=== PATIENT | female | born 1940 | race Caucasian/White ===

== ENCOUNTER 2018-06-27 15:08 | Inpatient (IN) | payer MEDICARE, OTHER ==
[~2018-06-27] VITALS: Ht 157.5 cm; Wt 70.8 kg
[2018-06-27 15:27] LABS: BASOPHILS # (AUTO) 0.1 K/uL (0.0-8.0); BASOPHILS % (AUTO) 0.3 % (0.0-2.0); EOSINOPHILS % (AUTO) 0.1 % (0.0-7.0); HEMATOCRIT 36.5 % (31.2-41.9); HEMOGLOBIN 11.9 g/dL (10.9-14.3); LYMPHOCYTES # (AUTO) 14.6 K/uL (20.0-40.0); LYMPHOCYTES % (AUTO) 72.7 % (20.5-51.5); MEAN CORPUSCULAR HEMOGLOBIN 28.3 uug (24.7-32.8); MEAN CORPUSCULAR HGB CONC 33 g/dL (32.3-35.6); MONOCYTES # (AUTO) 0.5 K/uL (2.0-10.0); MONOCYTES % (AUTO) 2.4 % (0.0-11.0); NEUTROPHILS # (AUTO) 4.9 K/uL (1.8-8.9); NEUTROPHILS % (AUTO) 24.5 % (38.5-71.5); PLATELET COUNT (AUTO) 158 K/uL (179-408); RED BLOOD CELL COUNT(AUTO) 4.19 MIL/uL (3.63-4.92)
[2018-06-27] MEDS ORDERED: [UNRECOGNIZED DRUG - OTHER] PO (15:32)
[2018-06-27 15:39] LABS: ALANINE AMINOTRANSFERASE 92 U/L (14-59); ALKALINE PHOSPHATASE 48 U/L (50-136); ASPARTATE AMINOTRANSFERASE 44 U/L (15-37); BILIRUBIN,DIRECT 0.1 mg/dL (0.0-0.2); BILIRUBIN,TOTAL 0.3 mg/dL (0.2-1.0); CARBON DIOXIDE 26 mmol/L (21-32); CHLORIDE 105 mmol/L (98-107); GLUCOSE 106 mg/dL (74-106); POTASSIUM 3.8 mmol/L (3.5-5.1); TOTAL PROTEIN, SERUM 6.8 g/dL (6.4-8.2); UREA NITROGEN, BLOOD 25 mg/dL (7-18)
[2018-06-27 15:40] LABS: ETHANOL < 3 MG/DL (0-0)
[2018-06-27 15:48] LABS: *BILIRUBIN,URIN 1+ (NEGATIVE); *BLOOD, URINE 1+ (NEGATIVE); *COLOR,URINE YELLOW (YELLOW); *KETONES,URINE NEGATIVE (NEGATIVE); *PROTEIN,URINE NEGATIVE (NEGATIVE); *UROBILINOGEN,URINE 0.2 E.U./dl (NORMAL); LEUKOCYTE ESTERASE ,URINE NEGATIVE (NEGATIVE); NITRITE, URINE NEGATIVE (NEGATIVE); PH,URINE 5.5 (5.0-8.0); UGLUCOSE NEGATIVE (NEGATIVE)
[2018-06-27 15:55] LABS: LYMPHOCYTES % (MANUAL) 70 % (20-40); MONOCYTES % (MANUAL) 2 % (2-10); NEUTROPHILS % (MANUAL) 28 % (42-75)
[2018-06-27 15:59] LABS: *CLARITY,URINE SLIGHTLY HAZY (CLEAR)
[2018-06-27 16:00] LABS: *AMPHETAMINE, URINE NEGATIVE (NEGATIVE); *BARBITURATE, URINE NEGATIVE (NEGATIVE); *CANNABINOID, URINE NEGATIVE (NEGATIVE); *COCCAINE, URINE NEGATIVE (NEGATIVE); *OPIATE, URINE NEGATIVE (NEGATIVE); *PHENCYCLIDINE SCREEN,URINE NEGATIVE (NEGATIVE)
[2018-06-27 16:01] LABS: THYROID STIMULATING HORMONE 3.329 mIU/mL (0.358-3.740)
[2018-06-27 16:02] LABS: CALCIUM OXALATE CRYSTALS,UR MODERATE /HPF (NONE SEEN); MUCUS,URINE MANY /LPF (0-FEW); SQUAMOUS EPITHELIAL CELL,UR MODERATE /HPF (NONE SEEN); WBC,URINE 0-3 /HPF (0-3)
[2018-06-27] MEDS ORDERED: TEMAZEPAM 7.5 MG CAPSULE PO PRN ×2 (18:00→18:45)
[2018-06-27] MEDS ORDERED: MAGNESIUM HYDROXIDE 30 ML LIQUID UDC PO PRN (18:00)
[2018-06-27] MEDS ORDERED: MAG HYDROX/AL HYDROX/SIMETH 30 ML LIQUID UDC PO PRN (18:00)
[2018-06-27] MEDS ORDERED: ACETAMINOPHEN 325 MG TABLET PO PRN (18:00)
[2018-06-27] MEDS ORDERED: CLONAZEPAM 0.5 MG TABLET PO PRN ×2 (18:00→19:00)
[2018-06-27 20:38] VITALS: BP 141/73
[2018-06-27] MEDS ORDERED: VALE150C PO (20:52)
[2018-06-27] MEDS ORDERED: OLANZAPINE 10 MG VIAL IM ONE (23:00)
[2018-06-28 07:30] VITALS: BP 127/51
[2018-06-28 16:15] VITALS: BP 135/73
[2018-06-28 20:02] VITALS: BP 131/68
[2018-06-28] MEDS ORDERED: OLANZAPINE 5 MG TABLET PO SCH (21:00)
[2018-06-29 07:30] VITALS: BP 156/64
[2018-06-29 16:00] VITALS: BP 143/61
[2018-06-29 17:10] LABS: BASOPHILS # (AUTO) 0.1 K/uL (0.0-8.0); BASOPHILS % (AUTO) 0.3 % (0.0-2.0); EOSINOPHILS % (AUTO) 0.2 % (0.0-7.0); HEMATOCRIT 37.2 % (31.2-41.9); HEMOGLOBIN 12.3 g/dL (10.9-14.3); LYMPHOCYTES # (AUTO) 14.6 K/uL (20.0-40.0); LYMPHOCYTES % (AUTO) 77.4 % (20.5-51.5); MEAN CORPUSCULAR HEMOGLOBIN 28.7 uug (24.7-32.8); MEAN CORPUSCULAR HGB CONC 33 g/dL (32.3-35.6); MEAN CORPUSCULAR VOLUME 86.8 fL (75.5-95.3); MONOCYTES # (AUTO) 0.4 K/uL (2.0-10.0); MONOCYTES % (AUTO) 2.3 % (0.0-11.0); NEUTROPHILS # (AUTO) 3.7 K/uL (1.8-8.9); NEUTROPHILS % (AUTO) 19.8 % (38.5-71.5); PLATELET COUNT (AUTO) 151 K/uL (179-408); RED BLOOD CELL COUNT(AUTO) 4.28 MIL/uL (3.63-4.92); WHITE BLOOD COUNT (AUTO) 18.8 K/uL (3.8-11.8)
[2018-06-29 17:23] LABS: ALANINE AMINOTRANSFERASE 79 U/L (14-59); ALKALINE PHOSPHATASE 49 U/L (50-136); ASPARTATE AMINOTRANSFERASE 33 U/L (15-37); BILIRUBIN,TOTAL 0.2 mg/dL (0.2-1.0); CARBON DIOXIDE 27 mmol/L (21-32); CHLORIDE 105 mmol/L (98-107); CREATININE 0.9 mg/dL (0.6-1.3); GLUCOSE 92 mg/dL (74-106); PHOSPHOROUS 3.4 mg/dL (2.5-4.9); TOTAL PROTEIN, SERUM 6.7 g/dL (6.4-8.2); UREA NITROGEN, BLOOD 19 mg/dL (7-18)
[2018-06-29 17:32] LABS: NEUTROPHILS % (MANUAL) 17 % (42-75)
[2018-06-29 17:33] LABS: BAND % (MANUAL) 2 % (0-10); EOSINOPHILS % (MANUAL) 1 % (0-8); MONOCYTES % (MANUAL) 2 % (2-10)
[2018-06-29 17:34] LABS: LYMPHOCYTES % (MANUAL) 78 % (20-40)
[2018-06-29] MEDS: OLANZAPINE 5 MG TABLET PO SCH (20:04)
[2018-06-29 21:20] VITALS: BP 110/50
[2018-06-30 07:30] VITALS: BP 129/48
[2018-06-30 16:00] VITALS: BP 130/53
[2018-06-30] MEDS: OLANZAPINE 5 MG TABLET PO SCH (20:21)
[2018-06-30 21:05] VITALS: BP 120/46
[2018-07-01 07:30] VITALS: BP 140/55
[2018-07-01 16:15] VITALS: BP 131/86
[2018-07-01] MEDS: OLANZAPINE 5 MG TABLET PO SCH (20:15)
[2018-07-01 22:42] VITALS: BP 118/60
[2018-07-02 07:30] VITALS: BP 108/33
[2018-07-02 07:36] LABS: CARBON DIOXIDE 28 mmol/L (21-32); CHLORIDE 106 mmol/L (98-107); CREATININE 0.9 mg/dL (0.6-1.3); GLUCOSE 99 mg/dL (74-106); UREA NITROGEN, BLOOD 18 mg/dL (7-18)
[2018-07-02 07:44] LABS: BASOPHILS % (AUTO) 0.3 % (0.0-2.0); EOSINOPHILS # (AUTO) 0.1 K/uL (0.0-0.7); EOSINOPHILS % (AUTO) 0.3 % (0.0-7.0); HEMATOCRIT 37.7 % (31.2-41.9); HEMOGLOBIN 12.3 g/dL (10.9-14.3); LYMPHOCYTES % (AUTO) 78.5 % (20.5-51.5); MEAN CORPUSCULAR HEMOGLOBIN 28.5 uug (24.7-32.8); MEAN CORPUSCULAR HGB CONC 33 g/dL (32.3-35.6); MEAN CORPUSCULAR VOLUME 87.4 fL (75.5-95.3); MONOCYTES # (AUTO) 0.4 K/uL (2.0-10.0); MONOCYTES % (AUTO) 2.4 % (0.0-11.0); NEUTROPHILS # (AUTO) 3.1 K/uL (1.8-8.9); NEUTROPHILS % (AUTO) 18.5 % (38.5-71.5); PLATELET COUNT (AUTO) 158 K/uL (179-408); RED BLOOD CELL COUNT(AUTO) 4.32 MIL/uL (3.63-4.92); WHITE BLOOD COUNT (AUTO) 16.5 K/uL (3.8-11.8)
[2018-07-02 11:34] LABS: LYMPHOCYTES % (MANUAL) 86 % (20-40); NEUTROPHILS % (MANUAL) 14 % (42-75)
[2018-07-02 16:00] VITALS: BP 137/44
[2018-07-02] MEDS: OLANZAPINE 5 MG TABLET PO SCH (20:13)
[2018-07-02 20:28] VITALS: BP 133/57
[2018-07-03 07:30] VITALS: BP 147/58
[2018-07-03 15:20] VITALS: BP 120/50
[2018-07-03 20:17] VITALS: BP 116/50
[2018-07-03] MEDS: OLANZAPINE 5 MG TABLET PO SCH (20:17)
[2018-07-04 07:30] VITALS: BP 142/60
[2018-07-04 16:00] VITALS: BP 110/56
== END 2018-07-04 18:30 | disposition home or self-care (01) | DRG 885 ==
LOC: ER 15:10 → GPS 17:36
PROVIDERS: ADMIT Psychiatry & Neurology Psychiatry; ATTEND Hospitalist
DX: F29 Unspecified psychosis not due to a substance or known physiological condition (principal); N17.0 Acute kidney failure with tubular necrosis; G92 Toxic encephalopathy; F03.90 Unspecified dementia, unspecified severity, without behavioral disturbance, psychotic disturbance, mood disturbance, and anxiety; R74.0 Nonspecific elevation of levels of transaminase and lactic acid dehydrogenase [LDH]; T42.6X5A Adverse effect of other antiepileptic and sedative-hypnotic drugs, initial encounter; Y92.019 Unspecified place in single-family (private) house as the place of occurrence of the external cause; D72.829 Elevated white blood cell count, unspecified; Z91.14 Patient's other noncompliance with medication regimen
CPT/HCPCS: 36415; 70450; 71045; 80307; 83735; 84100; 84443; 85025; 93005; A4663; G0480; J2358

== ENCOUNTER 2018-09-27 13:30 | Inpatient (IN) | payer MEDICARE, MEDICAID ==
[~2018-09-27] VITALS: Ht 162.6 cm; Wt 64.4 kg
[~2018-09-27 13:30] MED LIST: VALE150C PO; [UNRECOGNIZED DRUG - OTHER] PO
[2018-09-27 14:21] LABS: *BILIRUBIN,URIN NEGATIVE (NEGATIVE); *BLOOD, URINE 1+ (NEGATIVE); *CLARITY,URINE CLEAR (CLEAR); *COLOR,URINE YELLOW (YELLOW); *KETONES,URINE NEGATIVE (NEGATIVE); *UROBILINOGEN,URINE 0.2 E.U./dl (NORMAL); CARBON DIOXIDE 27 mmol/L (21-32); CHLORIDE 101 mmol/L (98-107); CREATININE 0.9 mg/dL (0.6-1.3); GLUCOSE 111 mg/dL (74-106); LEUKOCYTE ESTERASE ,URINE NEGATIVE (NEGATIVE); NITRITE, URINE NEGATIVE (NEGATIVE); PH,URINE 5.5 (5.0-8.0); POTASSIUM 3.6 mmol/L (3.5-5.1); UGLUCOSE NEGATIVE (NEGATIVE); UREA NITROGEN, BLOOD 16 mg/dL (7-18)
[2018-09-27 14:24] LABS: BASOPHILS % (AUTO) 0.1 % (0.0-2.0); EOSINOPHILS % (AUTO) 0.1 % (0.0-7.0); HEMOGLOBIN 11.4 g/dL (10.9-14.3); LYMPHOCYTES # (AUTO) 13.3 K/uL (20.0-40.0); LYMPHOCYTES % (AUTO) 69.5 % (20.5-51.5); MEAN CORPUSCULAR HEMOGLOBIN 27.7 uug (24.7-32.8); MEAN CORPUSCULAR HGB CONC 33 g/dL (32.3-35.6); MEAN CORPUSCULAR VOLUME 85.1 fL (75.5-95.3); MONOCYTES # (AUTO) 0.3 K/uL (2.0-10.0); MONOCYTES % (AUTO) 1.7 % (0.0-11.0); NEUTROPHILS # (AUTO) 5.5 K/uL (1.8-8.9); NEUTROPHILS % (AUTO) 28.6 % (38.5-71.5); PLATELET COUNT (AUTO) 169 K/uL (179-408); RED BLOOD CELL COUNT(AUTO) 4.11 MIL/uL (3.63-4.92); WHITE BLOOD COUNT (AUTO) 19.1 K/uL (3.8-11.8)
[2018-09-27 14:27] LABS: *AMPHETAMINE, URINE NEGATIVE (NEGATIVE); *BARBITURATE, URINE NEGATIVE (NEGATIVE); *CANNABINOID, URINE NEGATIVE (NEGATIVE); *COCCAINE, URINE NEGATIVE (NEGATIVE); *OPIATE, URINE NEGATIVE (NEGATIVE); *PHENCYCLIDINE SCREEN,URINE NEGATIVE (NEGATIVE); ALANINE AMINOTRANSFERASE 29 U/L (14-59); ALKALINE PHOSPHATASE 69 U/L (50-136); ASPARTATE AMINOTRANSFERASE 17 U/L (15-37); BILIRUBIN,DIRECT 0.1 mg/dL (0.0-0.2); BILIRUBIN,TOTAL 0.4 mg/dL (0.2-1.0); TOTAL PROTEIN, SERUM 6.9 g/dL (6.4-8.2)
[2018-09-27 14:28] LABS: ACETAMINOPHEN < 2.0 ug/mL (10-30)
[2018-09-27 14:29] LABS: ETHANOL < 3 MG/DL (0-0)
[2018-09-27 14:41] LABS: SQUAMOUS EPITHELIAL CELL,UR FEW /HPF (NONE SEEN); WBC,URINE 0-3 /HPF (0-3)
[2018-09-27 15:03] LABS: BAND % (MANUAL) 1 % (0-10); LYMPHOCYTES % (MANUAL) 68 % (20-40); MONOCYTES % (MANUAL) 2 % (2-10); NEUTROPHILS % (MANUAL) 29 % (42-75)
[2018-09-27 17:15] VITALS: BP 146/66
[2018-09-27] MEDS ORDERED: ACETAMINOPHEN 325 MG TABLET PO PRN (18:00)
[2018-09-27] MEDS ORDERED: TEMAZEPAM 7.5 MG CAPSULE PO PRN (18:00)
[2018-09-27] MEDS ORDERED: MAG HYDROX/AL HYDROX/SIMETH 30 ML LIQUID UDC PO PRN (18:00)
[2018-09-27] MEDS ORDERED: MAGNESIUM HYDROXIDE 30 ML LIQUID UDC PO PRN (18:00)
[2018-09-27 20:00] VITALS: BP 146/60
[2018-09-27] MEDS: CLONAZEPAM 0.5 MG TABLET PO PRN (20:57)
[2018-09-28 07:30] VITALS: BP 117/57
[2018-09-28 16:00] VITALS: BP 120/57
[2018-09-28 20:11] VITALS: BP 98/62
[2018-09-28] MEDS: MIRTAZAPINE 15 MG TABLET PO SCH (20:20)
[2018-09-29 07:30] VITALS: BP 135/59
[2018-09-29 15:08] VITALS: BP 114/53
[2018-09-29] MEDS: MIRTAZAPINE 15 MG TABLET PO SCH (20:22)
[2018-09-29 20:39] VITALS: BP 114/52
[2018-09-30 16:54] VITALS: BP 123/58
[2018-09-30 20:00] VITALS: BP 121/60
[2018-09-30] MEDS: MIRTAZAPINE 15 MG TABLET PO SCH ×2 (20:13→20:18)
[2018-10-01 07:30] VITALS: BP 113/57
[2018-10-01 16:56] VITALS: BP 93/53
[2018-10-01 20:12] VITALS: BP 135/70
[2018-10-01] MEDS: MIRTAZAPINE 15 MG TABLET PO SCH (20:21)
[2018-10-02 07:30] VITALS: BP 136/70
[2018-10-02] MEDS: CLONAZEPAM 0.5 MG TABLET PO PRN (11:46)
[2018-10-02 15:38] VITALS: BP 122/77
[2018-10-02 20:00] VITALS: BP 120/56
[2018-10-02] MEDS: MIRTAZAPINE 15 MG TABLET PO SCH (20:28)
[2018-10-03] MEDS: CLONAZEPAM 0.5 MG TABLET PO PRN ×2 (06:26→14:54)
[2018-10-03 07:30] VITALS: BP 96/63
[2018-10-03 16:13] VITALS: BP 122/52
[2018-10-03] MEDS: MIRTAZAPINE 15 MG TABLET PO SCH (20:56)
== END 2018-10-04 10:45 | disposition home or self-care (01) | DRG 885 ==
LOC: ER 13:30 → GPS 17:09
PROVIDERS: ADMIT Psychiatry & Neurology Psychiatry; ATTEND Nurse Practitioner Acute Care
DX: F33.2 Major depressive disorder, recurrent severe without psychotic features (principal); C91.10 Chronic lymphocytic leukemia of B-cell type not having achieved remission; G47.9 Sleep disorder, unspecified; I70.0 Atherosclerosis of aorta; F03.90 Unspecified dementia, unspecified severity, without behavioral disturbance, psychotic disturbance, mood disturbance, and anxiety; F41.9 Anxiety disorder, unspecified
CPT/HCPCS: 36415; 71045; 80307; 85025; 93005; A4663; G0480; G0480-TC

== ENCOUNTER 2018-10-23 13:59 | Inpatient (IN) | payer MEDICARE, MEDICAID ==
[~2018-10-23] VITALS: Ht 160 cm; Wt 64.4 kg
--- NOTE | 2018-10-23 14:05 | NUR ---
Recieved the patient oriented x1, name only, unable to answer any questions appropriately. EKG done, patient on monitor, AP irregular, lungs clear, diminished bilat. Lower abdomen distended, brink catherter 16 new zealander was inserted UA C&S sent. Labs done.
--- NOTE | 2018-10-23 14:17 | NUR ---
PT UNABLE TO FURNISH ANY MED INFORMATION AT THIS TIME R/T ALTERED MENTAL STATUS.
[2018-10-23] MEDS ORDERED: MIRT15TA PO (14:28)
[2018-10-23] MEDS ORDERED: MAGN400O6 PO (14:28)
[2018-10-23] MEDS ORDERED: CLON0.5T PO (14:28)
[2018-10-23] MEDS ORDERED: MAG355OR18 PO (14:28)
[2018-10-23] MEDS ORDERED: ACET-2154 PO (14:28)
[2018-10-23] MEDS ORDERED: TEMA7.5C PO (14:28)
[2018-10-23 14:39] LABS: BASOPHILS % (AUTO) 0.1 % (0.0-2.0); HEMATOCRIT 41.9 % (31.2-41.9); HEMOGLOBIN 13.5 g/dL (10.9-14.3); LYMPHOCYTES # (AUTO) 18.2 K/uL (20.0-40.0); LYMPHOCYTES % (AUTO) 61.8 % (20.5-51.5); MEAN CORPUSCULAR HEMOGLOBIN 27.3 uug (24.7-32.8); MEAN CORPUSCULAR HGB CONC 32 g/dL (32.3-35.6); MONOCYTES # (AUTO) 0.5 K/uL (2.0-10.0); MONOCYTES % (AUTO) 1.6 % (0.0-11.0); NEUTROPHILS # (AUTO) 10.7 K/uL (1.8-8.9); NEUTROPHILS % (AUTO) 36.5 % (38.5-71.5); PLATELET COUNT (AUTO) 166 K/uL (179-408); RED BLOOD CELL COUNT(AUTO) 4.93 MIL/uL (3.63-4.92); WHITE BLOOD COUNT (AUTO) 29.5 K/uL (3.8-11.8)
[2018-10-23 14:46] LABS: *BILIRUBIN,URIN NEGATIVE (NEGATIVE); *BLOOD, URINE 1+ (NEGATIVE); *CLARITY,URINE CLEAR (CLEAR); *COLOR,URINE YELLOW (YELLOW); *KETONES,URINE 2+ (NEGATIVE); *UROBILINOGEN,URINE 0.2 E.U./dl (NORMAL); LEUKOCYTE ESTERASE ,URINE NEGATIVE (NEGATIVE); NITRITE, URINE NEGATIVE (NEGATIVE); PH,URINE 5.5 (5.0-8.0); UGLUCOSE NEGATIVE (NEGATIVE)
[2018-10-23 14:47] LABS: CARBON DIOXIDE 21 mmol/L (21-32); CHLORIDE 104 mmol/L (98-107); GLUCOSE 110 mg/dL (74-106); POTASSIUM 4.3 mmol/L (3.5-5.1); UREA NITROGEN, BLOOD 19 mg/dL (7-18)
[2018-10-23 14:53] LABS: ALANINE AMINOTRANSFERASE 31 U/L (14-59); ALKALINE PHOSPHATASE 62 U/L (50-136); ASPARTATE AMINOTRANSFERASE 31 U/L (15-37); BILIRUBIN,DIRECT 0.2 mg/dL (0.0-0.2); BILIRUBIN,TOTAL 0.6 mg/dL (0.2-1.0); TOTAL PROTEIN, SERUM 7.1 g/dL (6.4-8.2)
[2018-10-23 14:53] LABS: WBC,URINE NONE SEEN /HPF (0-3)
[2018-10-23 14:54] LABS: BACTERIA,URINE NONE SEEN /HPF (NONE SEEN); SQUAMOUS EPITHELIAL CELL,UR FEW /HPF (NONE SEEN)
--- NOTE | 2018-10-23 14:55 | NUR ---
Patient to CT head.
[2018-10-23 15:05] LABS: LYMPHOCYTES % (MANUAL) 68 % (20-40); MONOCYTES % (MANUAL) 1 % (2-10); NEUTROPHILS % (MANUAL) 31 % (42-75)
[2018-10-23] MEDS ORDERED: HALOPERIDOL LACTATE 5 MG/1 ML VIAL ONE (15:11)
[2018-10-23] MEDS ORDERED: LORAZEPAM 2 MG/1 ML VIAL ONE (15:13)
[2018-10-23] MEDS ORDERED: HALOPERIDOL LACTATE 5 MG/1 ML VIAL IM ONE (15:15)
[2018-10-23] MEDS ORDERED: LORAZEPAM 2 MG/1 ML VIAL IV ONE (15:15)
--- NOTE | 2018-10-23 15:25 | NUR ---
Dr Ramirez visits patient, updated on present condition by son at bedside, and orders written.
[2018-10-23 15:56] LABS: ACETAMINOPHEN < 10.0 ug/mL (10-30)
[2018-10-23 16:07] LABS: ETHANOL < 3 MG/DL (0-0)
--- NOTE | 2018-10-23 16:15 | NUR ---
Patient with right hip bruise, and swollen, probable from fall at home. Right buttocks redness. Addendum: 10/23/18 at 1718 by ACARIDI Sons at bedside and aware. Andrea Cisneros RN
--- NOTE | 2018-10-23 16:35 | NUR ---
Patient family son signed for consent, and LP done at bedside, and labs sent. Andrea Cisneros RN
--- NOTE | 2018-10-23 16:55 | NUR ---
Patient to be admitted to 314, and report given to Lizbeth MARIO receiving patient, family aware of transfer. Andrea Cisneros RN
--- NOTE | 2018-10-23 17:42 | NUR ---
RECEIVED PATIENT 78 YEARS OLD FEMALE BY [facility]LEAZAR TO ROOM 214 PLACED INTO BED FIXED AND MADE COMFORTABLE PATIENT IS ALERT BUT DISORIENTED NO S/S OF PAIN OR DISCOMFORTS AT THIS TIMECALLED DR THAYER AND LEFT HIM A MESSAGE FOR ADMISSION ORDERS.
[2018-10-23 17:58] VITALS: BP 119/59
[2018-10-23] MEDS ORDERED: MAGNESIUM HYDROXIDE 30 ML LIQUID UDC PO PRN (18:00)
[2018-10-23] MEDS ORDERED: Z GUARD REMEDY PASTE 57 GM TUBE TOP PRN (18:00)
[2018-10-23] MEDS ORDERED: HYDROCODONE/APAP 5-325MG TABLET PO PRN (18:00)
[2018-10-23] MEDS ORDERED: ACETAMINOPHEN 325 MG TABLET PO SCH (18:00)
[2018-10-23] MEDS ORDERED: ONDANSETRON 4 MG/2 ML VIAL IV PRN (18:00)
[2018-10-23 18:16] LABS: *AMPHETAMINE, URINE NEGATIVE (NEGATIVE); *BARBITURATE, URINE NEGATIVE (NEGATIVE); *CANNABINOID, URINE NEGATIVE (NEGATIVE); *COCCAINE, URINE NEGATIVE (NEGATIVE); *OPIATE, URINE NEGATIVE (NEGATIVE); *PHENCYCLIDINE SCREEN,URINE NEGATIVE (NEGATIVE)
[2018-10-23 18:16] LABS: CSF PROTEIN 48 mg/dL (15-45)
[2018-10-23 18:22] LABS: CSF GLUCOSE 78 mg/dL (40-70)
--- NOTE | 2018-10-23 18:57 | NUR ---
BEDSIDE SWALLOW EVAL COMPLETED PATIENT ABLE TO SWALLOW WITHOUT COUGH CALLED DR THAYER AND LEFT HIM A MESSAGE.
[2018-10-23 20:48] VITALS: BP 98/62
[2018-10-23] MEDS: ENOXAPARIN SODIUM 40 MG/0.4 ML DISP.SYRIN SQ SCH (22:22)
[2018-10-23] MEDS: IV D5 1/2 NS 1000 ML 1,000 ML IV PRN (22:24)
[2018-10-23] MEDS: Z GUARD REMEDY PASTE 57 GM TUBE TOP SCH (22:28)
--- NOTE | 2018-10-23 22:53 | NUR ---
Rapid response called after RN entered room with medication and noted pt. was not making eye contact, looking up not responding to RN questions. RN then gently implemented tactile rubbing and patient blinked moved. Rapid response on floor assessing patient. Accuchecck and vitals completed. Noted EKG completed and call made to Physician. Call back received from physician with confirmation of order for monitor placement placement received. IV fluid initated and rn continues to round providing safe therapeutic environment for patient.
[2018-10-24 00:53] VITALS: BP 136/59
--- NOTE | 2018-10-24 01:31 | NUR ---
Pt. comfortable in bed resting with eyes closed and noted even unlabored respirations. IV site infusing well. rn able to arouse pt with minimal effort to open eyes. Monitors in place after RN called and requested telemetry monitoring. RN called MD to inform that patient had telemetry order upon admission on day shift. RN had arrived on floor at 0830 pm after assignment on TRACEY was cancel and order for telemetry was noted when rapid response was called at 0930pm. No new orders received at this time. Charge nurse aware of situation. Will continue to monitor for safety.
[2018-10-24 04:28] VITALS: BP 126/58
[2018-10-24] MEDS: PANTOPRAZOLE SODIUM 40 MG TABLET.DR PO SCH (05:46)
[2018-10-24 06:37] LABS: BASOPHILS % (AUTO) 0.1 % (0.0-2.0); EOSINOPHILS % (AUTO) 0.2 % (0.0-7.0); HEMATOCRIT 37.6 % (31.2-41.9); HEMOGLOBIN 12.2 g/dL (10.9-14.3); LYMPHOCYTES # (AUTO) 14.5 K/uL (20.0-40.0); LYMPHOCYTES % (AUTO) 70.5 % (20.5-51.5); MEAN CORPUSCULAR HEMOGLOBIN 27.2 uug (24.7-32.8); MEAN CORPUSCULAR HGB CONC 32 g/dL (32.3-35.6); MEAN CORPUSCULAR VOLUME 83.9 fL (75.5-95.3); MONOCYTES # (AUTO) 0.6 K/uL (2.0-10.0); MONOCYTES % (AUTO) 2.8 % (0.0-11.0); NEUTROPHILS # (AUTO) 5.4 K/uL (1.8-8.9); NEUTROPHILS % (AUTO) 26.4 % (38.5-71.5); PLATELET COUNT (AUTO) 149 K/uL (179-408); RED BLOOD CELL COUNT(AUTO) 4.48 MIL/uL (3.63-4.92); WHITE BLOOD COUNT (AUTO) 20.6 K/uL (3.8-11.8)
[2018-10-24 07:00] LABS: CARBON DIOXIDE 23 mmol/L (21-32); CHLORIDE 110 mmol/L (98-107); CHOLESTEROL 160 mg/dL (<200); GLUCOSE 118 mg/dL (74-106); HDL CHOLESTEROL 71 mg/dL (40-60); MAGNESIUM 1.8 mg/dL (1.8-2.4); PHOSPHOROUS 2.7 mg/dL (2.5-4.9); POTASSIUM 3.7 mmol/L (3.5-5.1); TRIGLYCERIDES 78 MG/DL (30-150); UREA NITROGEN, BLOOD 19 mg/dL (7-18)
[2018-10-24 07:06] LABS: THYROID STIMULATING HORMONE 2.473 mIU/mL (0.358-3.740)
[2018-10-24 07:53] LABS: LYMPHOCYTES % (MANUAL) 70 % (20-40); MONOCYTES % (MANUAL) 3 % (2-10); NEUTROPHILS % (MANUAL) 27 % (42-75)
--- NOTE | 2018-10-24 08:30 | NUR ---
PHYSICAL THERAPY HERE TO SEE PATIENT STATED THAT PATIENT IS WEAK AND UNABLE TO WALK WILL SEE PATIENT AT ANOTHER TIME OPENS EYES SLEEPY ATTEMPT TO RESPOND BUT INCOHERENT AT THIS TIME WILL CONTINUE TO OBSERVE REMAIN NPO AT THIS TIME.
--- NOTE | 2018-10-24 08:45 | NUR ---
HEART RATE IS FLUCTUATING BETWEEN 113-115 DR BOWMAN HERE NOTIFIED AND HE SEEN AND EXAMINED PATIENT WITH NEW ORDERS FOR ECHO WILL CONTINUE TO OBSERVE MONITOR AND PROVIDE SAFE AND THERAPEUTIC ENVIRONMENT AT ALL TIMES IVF REMAINS IN PROGRESS ORDERED.
[2018-10-24] MEDS: Z GUARD REMEDY PASTE 57 GM TUBE TOP SCH ×2 (08:54→21:15)
[2018-10-24] MEDS ORDERED: IOHEXOL 300MG/ML 100 ML INFUS..BTL ONE (09:46)
[2018-10-24] MEDS ORDERED: IV NORMAL SALINE 250 ML IV ONE (09:46)
[2018-10-24] MEDS ORDERED: SWABABLE VALVE TRANSFER SET EA MC ONE (09:46)
[2018-10-24] MEDS: IV D5 1/2 NS 1000 ML 1,000 ML IV PRN (11:16)
[2018-10-24 11:48] VITALS: BP 130/63
--- NOTE | 2018-10-24 12:00 | NUR ---
DR MUNROE HERE TO SEE PATIENT WITH NEW ORDERS AND NOTED.
--- NOTE | 2018-10-24 13:19 | NUR ---
PATIENT TAKEN DOWN TO THE RADIOLOGY DEPT BY BED FOR CT ABDOMEN AND PELVIS ORDERED AND BACK TO ROOM REMAIN ON IVF ORDERED WITH CONTINUES TO SLEEP AWARE WHEN TOUCHED OR NAME CALLED UNABLE TO CARRY ON CONVERSATIONS ALL NEEDS ANTICIPATED AND SATISFIED.WILL CONTINUE TO OBSERVE AND PROVIDE SAFE AND THERAPEUTIC ENVIRONMENT AT ALL TIMES.
[2018-10-24 15:35] VITALS: BP 134/67
--- NOTE | 2018-10-24 18:00 | NUR ---
PATIENT IS CONFUSED DISORIENTED STILL LETHARGIC ATTEMPTS TO VERBALISE BUT IS INCOHERENT REMAIN NPO ALL NEEDS ANTICIPATED AND SATISFIED IVF IN PROGRESS ORDERED MADE COMFORTABLE AND WILL CONTINUE TO OBSERVE.
[2018-10-24 19:19] VITALS: BP 138/63
--- NOTE | 2018-10-24 19:40 | NUR ---
Received patient awake and lethargic in bed. No signs of acute distress noted. No signs of pain or SOB. IVF running on the right AC. Safety measures initiated. Patient made comfortable. Bed is low and locked, call light is within reach. Will continue to monitor.
[2018-10-24] MEDS: ENOXAPARIN SODIUM 40 MG/0.4 ML DISP.SYRIN SQ SCH (21:10)
[2018-10-24 23:23] VITALS: BP 117/49
[2018-10-25] MEDS: IV D5 1/2 NS 1000 ML 1,000 ML IV PRN ×2 (02:21→15:53)
[2018-10-25 03:21] VITALS: BP 137/66
[2018-10-25] MEDS: PANTOPRAZOLE SODIUM 40 MG TABLET.DR PO SCH (06:23)
--- NOTE | 2018-10-25 07:20 | NUR ---
PATIENT RECEIVED ON BED, NO ACUTE DISTRESS NOTED. AAOX2. ON TELE SINUS TACHYCARDIA. IV ACCESS ON RIGHT AC # 20 INTACT AND PATENT RUNNING NS @ 75 CC/HR, INFUSING WELL. NPO. NO COMPLAINTS OF PAIN/DISCOMFORT AT THIS TIME. COMFORT MEASURES PROVIDED. CALL LIGHT WITHIN REACH. WILL COTNINUE TO MONITOR CLOSELY.
[2018-10-25] MEDS: Z GUARD REMEDY PASTE 57 GM TUBE TOP SCH ×2 (08:33→20:43)
[2018-10-25 11:43] VITALS: BP 163/79
--- NOTE | 2018-10-25 12:24 | NUR ---
INFORMED BY BRAD GALVAN, PATIENT NOTED WITH ELEVATED BP 163/79 HR 98, PATIENT NOT IN ACUTE DISTRESS, ALERT AND RESPONSIVE, REASSESSED AFTER 30 MINS, PATIENT'S BP STILL ELEVATED 160/75 HR105[address] LEFT MESSAGE [address] RAMIREZ, AWAITING REPLY.
--- NOTE | 2018-10-25 12:41 | NUR ---
DR. RAMIREZ RESPONDED, WITH ORDERS FOR METOPROLOL 25 MG PO Q12HR, START FIRST DOSE NOW, ORDERS NOTED AND CARRIED OUT.
[2018-10-25] MEDS: METOPROLOL TARTRATE 25 MG TABLET PO SCH ×2 (13:52→20:42)
[2018-10-25 15:47] VITALS: BP 118/73
--- NOTE | 2018-10-25 17:45 | NUR ---
PATIENT SEEN AND EXAMINED BY DR. GARCIA FOR PSYCH EVAL. WILL CONTINUE TO MONITOR CLOSELY.
[2018-10-25 19:18] VITALS: BP 133/60
--- NOTE | 2018-10-25 19:35 | NUR ---
Received patient awake and alert in bed. No signs of acute distress noted. No complaints of pain or SOB. IVF running on the right AC. DVT pumps are on. Safety measures initiated. Bed is low and locked, call light is within reach. Will continue to monitor.
[2018-10-25] MEDS: ENOXAPARIN SODIUM 40 MG/0.4 ML DISP.SYRIN SQ SCH (20:48)
[2018-10-25] MEDS ORDERED: MIRTAZAPINE 15 MG TABLET PO SCH (21:00)
[2018-10-26 03:16] VITALS: BP 135/63
--- NOTE | 2018-10-26 05:45 | NUR ---
Patient slept well throughout the shift. Inserted new IV on the right hand #22 gauge, IVF running. No complaints of pain or SOB. All medications given as ordered and tolerated well. Safety measures given.
[2018-10-26] MEDS: PANTOPRAZOLE SODIUM 40 MG TABLET.DR PO SCH (06:07)
[2018-10-26 06:31] LABS: BASOPHILS % (AUTO) 0.2 % (0.0-2.0); EOSINOPHILS # (AUTO) 0.1 K/uL (0.0-0.7); EOSINOPHILS % (AUTO) 0.3 % (0.0-7.0); HEMATOCRIT 34.6 % (31.2-41.9); HEMOGLOBIN 11.6 g/dL (10.9-14.3); LYMPHOCYTES # (AUTO) 13.1 K/uL (20.0-40.0); MEAN CORPUSCULAR HEMOGLOBIN 27.8 uug (24.7-32.8); MEAN CORPUSCULAR HGB CONC 33 g/dL (32.3-35.6); MEAN CORPUSCULAR VOLUME 83.2 fL (75.5-95.3); MONOCYTES # (AUTO) 0.4 K/uL (2.0-10.0); MONOCYTES % (AUTO) 2.4 % (0.0-11.0); NEUTROPHILS # (AUTO) 3.6 K/uL (1.8-8.9); NEUTROPHILS % (AUTO) 21.1 % (38.5-71.5); PLATELET COUNT (AUTO) 145 K/uL (179-408); RED BLOOD CELL COUNT(AUTO) 4.16 MIL/uL (3.63-4.92); WHITE BLOOD COUNT (AUTO) 17.2 K/uL (3.8-11.8)
[2018-10-26] MEDS: IV D5 1/2 NS 1000 ML 1,000 ML IV PRN (06:45)
[2018-10-26 06:59] LABS: ALANINE AMINOTRANSFERASE 26 U/L (14-59); ALKALINE PHOSPHATASE 48 U/L (50-136); ASPARTATE AMINOTRANSFERASE 18 U/L (15-37); BILIRUBIN,TOTAL 0.4 mg/dL (0.2-1.0); CARBON DIOXIDE 25 mmol/L (21-32); CHLORIDE 107 mmol/L (98-107); CREATININE 0.7 mg/dL (0.6-1.3); GLUCOSE 116 mg/dL (74-106); MAGNESIUM 1.6 mg/dL (1.8-2.4); TOTAL PROTEIN, SERUM 5.7 g/dL (6.4-8.2); UREA NITROGEN, BLOOD 7 mg/dL (7-18)
--- NOTE | 2018-10-26 07:10 | NUR ---
Patient slept well throughout the shift per shift boss nurseLISA on the right hand #22 gauge, IV is running 75ml/hr No complaints of pain or SOB. All Safety measures are implemented.
[2018-10-26 07:53] LABS: EOSINOPHILS % (MANUAL) 2 % (0-8); LYMPHOCYTES % (MANUAL) 74 % (20-40); MONOCYTES % (MANUAL) 3 % (2-10); NEUTROPHILS % (MANUAL) 19 % (42-75)
[2018-10-26] MEDS: METOPROLOL TARTRATE 25 MG TABLET PO SCH (09:23)
[2018-10-26] MEDS ORDERED: POTASSIUM CHLORIDE 20 MEQ TAB.PRT.SR PO ONE (09:30)
[2018-10-26] MEDS ORDERED: MAGNESIUM OXIDE 400 MG TABLET PO ONE (09:30)
[2018-10-26] MEDS: Z GUARD REMEDY PASTE 57 GM TUBE TOP SCH (10:09)
[2018-10-26 11:31] VITALS: BP 116/49
[2018-10-26 15:48] VITALS: BP 114/81
--- NOTE | 2018-10-26 17:58 | NUR ---
patient is sleeping, no signs of discomfort noted, hemodialysis done 700 cc output per dialysis nurse, all safety and comfort measures are met Addendum: 10/26/18 at 1807 by PALOMO CHAU RN wrong note, this was about patient in room 324
--- NOTE | 2018-10-26 18:08 | NUR ---
Patient is resting,NO ACUTE DISTRESS NOTED. AAOX2. D/C from TELE ,IV ACCESS ON RIGHT AC # 20 INTACT AND PATENT RUNNING D5 1/2 NS @ 75 CC/HR, INFUSING WELL. NO COMPLAINTS OF PAIN/DISCOMFORT AT THIS TIME. COMFORT MEASURES PROVIDED. CALL LIGHT WITHIN REACH. WILL CONTINUE TO MONITOR CLOSELY.
--- NOTE | 2018-10-26 18:46 | NUR ---
patient is MEDICALLY CLEARED AND TO BE D/C TO MENTAL HEALTH UNIT, ROOM 141 A PER MD ORDER, PATIENT'S BELONGINGS FORM IS SIGNED, D/C INSTRUCTIONS GIVEN TO RN
[2018-10-26] MEDS ORDERED: METO25TA6 PO ×2 (19:44→21:35)
[2018-10-26] MEDS ORDERED: FAMO-132 PO (19:44)
[2018-10-26] MEDS ORDERED: MIRT15TA7 PO (19:44)
[2018-10-26] MEDS ORDERED: MULT1TAB73 PO (19:44)
--- NOTE | 2018-10-26 20:59 | NUR ---
PATIENT DISCHARGED TO MHU, TOOK ALL BELONGINGS, GAVE REPORT TO ARACELI MARIO.
[2018-10-26] MEDS ORDERED: PANT40TA2 PO (21:35)
[2018-10-26] MEDS ORDERED: MIRT15TA PO (21:35)
[2018-10-26] MEDS ORDERED: ENOX40DI SQ (21:35)
[2018-10-26] MEDS ORDERED: ONDA4TAB5 PO (21:35)
[2018-10-26] MEDS ORDERED: CLON0.5T12 PO (21:35)
[2018-10-26] MEDS ORDERED: HYDR-3326 PO (21:35)
== END 2018-10-26 20:07 | DRG 917 ==
LOC: ER 13:59 → TELE3 16:57 → MEDSURG3 10-25 17:07
PROVIDERS: ATTEND Internal Medicine
PROC: 009U3ZX Drainage of Spinal Canal, Percutaneous Approach, Diagnostic (ICD-10-PCS; principal; 2018-10-23)
DX: T42.4X1A Poisoning by benzodiazepines, accidental (unintentional), initial encounter (principal); G92 Toxic encephalopathy; N17.0 Acute kidney failure with tubular necrosis; M62.82 Rhabdomyolysis; D68.59 Other primary thrombophilia; C91.10 Chronic lymphocytic leukemia of B-cell type not having achieved remission; F33.1 Major depressive disorder, recurrent, moderate; Y92.039 Unspecified place in apartment as the place of occurrence of the external cause; Z74.09 Other reduced mobility; S42.252D Displaced fracture of greater tuberosity of left humerus, subsequent encounter for fracture with routine healing; W19.XXXD Unspecified fall, subsequent encounter; Z91.81 History of falling; E86.0 Dehydration; F03.90 Unspecified dementia, unspecified severity, without behavioral disturbance, psychotic disturbance, mood disturbance, and anxiety; N28.1 Cyst of kidney, acquired; D69.59 Other secondary thrombocytopenia; E11.9 Type 2 diabetes mellitus without complications; Z91.14 Patient's other noncompliance with medication regimen; R55 Syncope and collapse
CPT/HCPCS: 36415; 70030-TC; 70450; 71045; 72170; 80307; 83605; 83735; 84100; 84157; 84443; 85025; 87040; 87086; 89051; 92526; 92610; 93005; 93307; 93880; 97112; 97116; 97530; A4663; G0378; G0480; G0480-TC; J1630; J1650; J2060; J3490; J7030; J7050; Q9967

== ENCOUNTER 2018-10-26 20:30 | Inpatient (IN) | payer MEDICARE, MEDICAID ==
[~2018-10-26] VITALS: Ht 160 cm; Wt 64.4 kg
[~2018-10-26 20:30] MED LIST changes: +ACET-2154 PO; +CLON0.5T PO; +FAMO-132 PO; +MAG355OR18 PO; +MAGN400O6 PO; +METO25TA6 PO; +MIRT15TA PO; +MIRT15TA7 PO; +MULT1TAB73 PO; +TEMA7.5C PO; -VALE150C PO; -[UNRECOGNIZED DRUG - OTHER] PO
--- NOTE | 2018-10-26 21:00 | NUR ---
Received patient via wheelchair accompanied by AVIATION MAINTENANCE TECHNICIAN from [facility] floor. Patient not in any form of distress. Alert and oriented x 1/2. Noted patient able to stand and ambulate with assist but with unsteady gait. Patient incontinent. Patient transferred to hospital bed and made comfortable. No complaints at the moment. Will continue to monitor.
[2018-10-26] MEDS ORDERED: MAG HYDROX/AL HYDROX/SIMETH 30 ML LIQUID UDC PO PRN (21:30)
[2018-10-26] MEDS ORDERED: ACETAMINOPHEN 325 MG TABLET PO SCH (21:30)
[2018-10-26] MEDS ORDERED: ACETAMINOPHEN 325 MG TABLET PO PRN (21:30)
[2018-10-26] MEDS ORDERED: MAG HYDROX/AL HYDROX/SIMETH 30 ML LIQUID UDC PO SCH (21:30)
[2018-10-26] MEDS ORDERED: MAGNESIUM HYDROXIDE 30 ML LIQUID UDC PO PRN (21:30)
[2018-10-26] MEDS ORDERED: MIRTAZAPINE 15 MG TABLET PO SCH (21:30)
[2018-10-26] MEDS ORDERED: MAGNESIUM HYDROXIDE 30 ML LIQUID UDC PO SCH (21:30)
[2018-10-26] MEDS ORDERED: ENOX40DI SQ (21:35)
[2018-10-26] MEDS ORDERED: METO25TA6 PO (21:35)
[2018-10-26] MEDS ORDERED: MIRT15TA PO (21:35)
[2018-10-26] MEDS ORDERED: HYDR-3326 PO (21:35)
[2018-10-26] MEDS ORDERED: ONDA4TAB5 PO (21:35)
[2018-10-26] MEDS ORDERED: PANT40TA2 PO (21:35)
[2018-10-26] MEDS ORDERED: CLON0.5T12 PO (21:35)
--- NOTE | 2018-10-26 22:00 | NUR ---
Noted patient with temperature of 99.8 oral, prn tylenol given per orem. Will continue to monitor.
--- NOTE | 2018-10-27 06:05 | NUR ---
Patient slept 7.45hours. No distress or agitation noted this shift. Patient has been compliant with medications.Ensured safety and comfort.
[2018-10-27 07:30] VITALS: BP 131/65
[2018-10-27] MEDS: MULTIVITAMINS,THERAPEUTIC TABLET PO SCH (08:29)
[2018-10-27] MEDS: METOPROLOL TARTRATE 25 MG TABLET PO SCH ×2 (08:30→20:27)
[2018-10-27] MEDS: FAMOTIDINE 20 MG TABLET PO SCH (08:44)
[2018-10-27] MEDS ORDERED: Medication Not On Formulary EA (Multivitamins (Multivitamin) 1 EACH) PO SCH (09:00)
--- NOTE | 2018-10-27 11:52 | NUR ---
WOUND CARE CONSULT: PT PRESENTS WITH LEFT HIP SKIN TEAR OVER AREA OF PREVIOUS SCARRING, PRESENT ON ADMISSION. PT IS INCONTINENT. RECOMMENDATIONS MADE FOR SKIN PROTECTION AND WOUND CARE. DISCUSSED WITH NURSING STAFF. CURRENT RONAK SCORE IS 17. MD IN AGREEMENT WITH PLAN OF CARE. WILL SEE PRN. Addendum: 10/27/18 at 1153 by CAREN SCHAFFER RN Amended: Links added.
[2018-10-27] MEDS ORDERED: Z GUARD REMEDY PASTE 57 GM TUBE TOP PRN (12:00)
[2018-10-27] MEDS: Z GUARD REMEDY PASTE 57 GM TUBE TOP SCH ×2 (12:30→20:29)
--- NOTE | 2018-10-27 15:24 | NUR ---
Social Work: Re Admission Note: Since this patient was readmitted within 30 days, this insurance underwriter attests to the information previously noted in psychosocial dated 09/28/18. Patient was readmitted to MHU on a 5150 for Gravely Disabled adult on 10/26/18. Her current presentation is that of major depression, pt is oriented axo3 (person, place and year). Pt appearance us disheveled, speech is pressured, eye contact at time avoidant and sometimes intense, pts motor activity is slowed and affect labile. Pts mood is anxious. Pt declines any auditory or visual hallucinations at this time. Pt declines any suicidal or homicidal ideations at this time. Pt is cooperative however withdrawn when discussing medication, pt states she could not sleep when taking medication so she stopped. Pts insight and judgment seem poor. She was admitted medically for neurological disorders (dementia, toxic encephalopathy), cardiac disorder, genitourinary disorder, leukemia per meditech history. Patient has been living alone but Dr Stoner, the admitting psychiatrist feels that she could benefit from a higher level of care. Plan: will discuss alternative placement, possibly in a long-term, and will follow up.
[2018-10-27 16:00] VITALS: BP 111/54
[2018-10-27 19:54] VITALS: BP 100/50
[2018-10-27] MEDS: MIRTAZAPINE 15 MG TABLET PO SCH (20:15)
[2018-10-27 21:00] VITALS: BP 123/54
--- NOTE | 2018-10-28 06:31 | NUR ---
Remain calm and cooperative with medications and care. slept 9 hrs through the night. self care. Resting in lauren chair near the nursing station for safety at this time.
[2018-10-28 07:30] VITALS: BP 107/53
[2018-10-28] MEDS: METOPROLOL TARTRATE 25 MG TABLET PO SCH ×2 (08:10→20:47)
[2018-10-28] MEDS: MULTIVITAMINS,THERAPEUTIC TABLET PO SCH (08:11)
[2018-10-28] MEDS: Z GUARD REMEDY PASTE 57 GM TUBE TOP SCH ×2 (08:11→21:33)
[2018-10-28] MEDS: FAMOTIDINE 20 MG TABLET PO SCH (08:11)
[2018-10-28 16:00] VITALS: BP 106/55
--- NOTE | 2018-10-28 17:56 | NUR ---
RECEIVED PATIENT AWAKE ON BED, ABLE TO AMBULATE WITHOUT ASSIST, ENCOURAGE TO AMBULATE IN THE HALLWAY, PATIENT COMPLIANT WITH MEDICATION AND CARE, WILL CONTINUE MONITOR
--- NOTE | 2018-10-28 18:34 | NUR ---
PATIENT SPOKE WITH HER SON ON THE PHONE, PATIENT GAVE PHONE TO STAFF, HER SON CAM WANTS TO GET THE KRISHNAMURTHY FROM PATIENTS BELONGING, AND TOLD THAT SOMEBODY WILL COME TO PICK IT UP, AFTER A WHILE PATIENT APPROACH STAFF AND ASK NOT TO ALLOW ANYBODY TO COME IN, ANYMORE AND SAYS THAT SHE DOESNT ALLOW ANYBODY TO GET HER KRISHNAMURTHY, AT AROUND 6:25PM PATIENTS DAUGHTER IN LAW CAME IN , HOWEVER PATIENT DOESNT WANT TO SEE AND ASK NOT TO TALK WITH HER, VISITOR ESCORTED OUTSIDE THE UNIT, NO HARM WAS DONE WITH PATIENT KEPT CALM, AND RE ASSURE OF SAFETY, SECURITY NOTIFIED , WILL CONTINUE MONITOR
--- NOTE | 2018-10-28 18:35 | NUR ---
PT NOTED TO BE HIGHLY FEARFUL OF VISITOR, FOUND HIDING IN HER BATHROOM IN HER ROOM, SITTING IN THE CORNER ON FLOOR IN THE DARK. PT DID NOT EVEN WANT TO VERBALLY RESPOND, IN FEAR THAT VISITOR WOULD HEAR HER AND KNOW SHE WAS THERE. PT WHISPERED TO CORE FILER "IS SHE GONE YET?" ASSURED PT VISITOR IS NOT IN UNIT, AND HAD BEEN ESCORTED OUT, AND THAT SHE WAS SAFE. PT DID NOT WANT TO DIVULGE THE NATURE OF HER FEARFUL BEHAVIOR, BUT WAS RELIEVED WHEN VISITOR LEFT UNIT.
--- NOTE | 2018-10-28 20:00 | NUR ---
received pt in dining room appears to be anxious and scared wanting to know if she is gone ,pt reassured med given and settled in bed
[2018-10-28 20:09] VITALS: BP 109/58
[2018-10-28] MEDS: MIRTAZAPINE 15 MG TABLET PO SCH (20:47)
[2018-10-28] MEDS: TEMAZEPAM 7.5 MG CAPSULE PO PRN (20:48)
--- NOTE | 2018-10-29 | NUR ---
pt resting in no distress at this time
--- NOTE | 2018-10-29 04:00 | NUR ---
pt resting at this time no distress noted
--- NOTE | 2018-10-29 04:49 | NUR ---
NSG/GPS Approx. 1930 staff received a call from a nurse that identified herself as a CCU nurse that was calling on behalf of patient's family, claiming that the elliott to their apartment had been misplaced and they would like to have the one in the patient's possession. Patient was approached by staff, pt's response was "I don't believe that to be true and I do not want to see them". Staff informed caller that she was unable to confirm nor deny pt status at this time.
[2018-10-29 07:30] VITALS: BP 146/65
[2018-10-29] MEDS: METOPROLOL TARTRATE 25 MG TABLET PO SCH ×3 (09:01→20:20)
[2018-10-29] MEDS: FAMOTIDINE 20 MG TABLET PO SCH (09:01)
[2018-10-29] MEDS: Z GUARD REMEDY PASTE 57 GM TUBE TOP SCH ×2 (09:02→20:15)
[2018-10-29] MEDS: MULTIVITAMINS,THERAPEUTIC TABLET PO SCH (09:02)
[2018-10-29] MEDS ORDERED: MAGNESIUM HYDROXIDE 30 ML LIQUID UDC PO PRN (12:30)
[2018-10-29 16:00] VITALS: BP 120/56
[2018-10-29] MEDS: LORAZEPAM 0.5 MG TABLET PO PRN (16:53)
[2018-10-29] MEDS: MIRTAZAPINE 15 MG TABLET PO SCH ×2 (20:11→20:20)
[2018-10-29] MEDS: TEMAZEPAM 7.5 MG CAPSULE PO PRN (20:13)
--- NOTE | 2018-10-29 20:21 | NUR ---
GPS Nursing Notes: Pt refused HS medications. Educated patient on risks vs benefits, still preferred not to take them. Per pt, she already took an antianxiety pill and that is all she needs for tonight. Will respect pt's right to refuse. Will monitor.
[2018-10-29 20:25] VITALS: BP 122/56
[2018-10-30 07:30] VITALS: BP 108/41
[2018-10-30] MEDS: MULTIVITAMINS,THERAPEUTIC TABLET PO SCH (08:11)
[2018-10-30] MEDS: FAMOTIDINE 20 MG TABLET PO SCH (08:11)
[2018-10-30] MEDS: Z GUARD REMEDY PASTE 57 GM TUBE TOP SCH ×2 (08:11→20:15)
[2018-10-30] MEDS: METOPROLOL TARTRATE 25 MG TABLET PO SCH ×2 (08:11→20:14)
--- NOTE | 2018-10-30 10:14 | NUR ---
Initial Discharge Note: Pt [facility] [address], [address] . Pts emergency contact is her son Gee Lam [phone]. Pt is requesting to be discharged back home with her family. Dr Stoner, the admitting psychiatrist feels that she could benefit from a higher level of care. SW will work with pt, pts family and MD to form a safe and proper discharge plan.
--- NOTE | 2018-10-30 16:40 | NUR ---
Firearms Report: KARYN completed and submitted [employer] Firearms Report for 5250 GD certification.
[2018-10-30 16:45] VITALS: BP 126/48
--- NOTE | 2018-10-30 18:02 | NUR ---
RECEIVED PATIENT ALERT ORIENTED X3 , PATIENT CALM, DENIES SI AND HI, STILL WITHDRAWN, PATIENT COMPLIANT WITH DIET AND MEDICATION ,AMBULATES IN THE HALLWAY, PATIENT VERBALIZES THAT SHE DOESNT WANT ANY VISITOR, WILL CONTINUE MONITOR
[2018-10-30] MEDS: MIRTAZAPINE 15 MG TABLET PO SCH (20:15)
[2018-10-30 20:16] VITALS: BP 104/53
[2018-10-30] MEDS: TEMAZEPAM 7.5 MG CAPSULE PO PRN (22:06)
[2018-10-31 07:45] VITALS: BP 136/61
[2018-10-31] MEDS: METOPROLOL TARTRATE 25 MG TABLET PO SCH ×3 (08:15→20:12)
[2018-10-31] MEDS: FAMOTIDINE 20 MG TABLET PO SCH (08:15)
[2018-10-31] MEDS: Z GUARD REMEDY PASTE 57 GM TUBE TOP SCH ×2 (08:22→20:11)
[2018-10-31] MEDS: MULTIVITAMINS,THERAPEUTIC TABLET PO SCH (08:25)
--- NOTE | 2018-10-31 10:35 | NUR ---
Discharge Planning Note: KARYN consulted with Dr. Stoner on this case, and he is recommending SNF placement for the patient. KARYN faxed SNF inquiries to the following facilities: [facility] [p. [phone]; f. [phone]] Attn: Ирина Christianson [ph. [phone]; fax [phone]] Attn: Justin Ruggiero [facility] [p. [phone]; f [phone]] Attn: Marnie BOSS awaiting decision from facilities. KARYN will continue to follow-up.
[2018-10-31] MEDS: LORAZEPAM 0.5 MG TABLET PO PRN (13:10)
[2018-10-31] MEDS: ACETAMINOPHEN 325 MG TABLET PO PRN (14:48)
--- NOTE | 2018-10-31 16:24 | NUR ---
GPS: RECEIVED PATIENT ASLEEP ON BED, PATIENT AOX3-4, DENIES PAIN , NO SOB NO DISCOMFORT NOTED, PATIENT STAYED IN HER ROOM AND SELECTIVELY REFUSING HER MEDICATION, PATIENT REFUSED HER LUNCH AND EXPRESS ANXIOUSNESS, PRN MEDICATION GIVEN ORDERED, KEPT COMFORTABLE, AND REDIRECT PATIENT WITH ACTIVITY, WILL CONTINUE MONITOR
[2018-10-31 17:01] VITALS: BP 111/51
[2018-10-31 20:00] VITALS: BP 117/55
[2018-10-31] MEDS: MIRTAZAPINE 15 MG TABLET PO SCH (20:12)
[2018-11-01] MEDS: TEMAZEPAM 7.5 MG CAPSULE PO PRN ×2 (00:19→23:14)
[2018-11-01 07:30] VITALS: BP 144/62
[2018-11-01] MEDS: MULTIVITAMINS,THERAPEUTIC TABLET PO SCH (08:26)
[2018-11-01] MEDS: Z GUARD REMEDY PASTE 57 GM TUBE TOP SCH ×2 (08:26→20:29)
[2018-11-01] MEDS: FAMOTIDINE 20 MG TABLET PO SCH (08:26)
[2018-11-01] MEDS: METOPROLOL TARTRATE 25 MG TABLET PO SCH ×2 (08:27→20:21)
[2018-11-01] MEDS: LORAZEPAM 0.5 MG TABLET PO PRN (14:05)
[2018-11-01] MEDS: ACETAMINOPHEN 325 MG TABLET PO PRN (14:53)
[2018-11-01 16:00] VITALS: BP 92/50
--- NOTE | 2018-11-01 16:55 | NUR ---
Discharge planning: flare worker met with patient at bedside and facilitated conversation about fpc placement. Patient agreeable to fpc placement and acknowledges concern of safety if she returned her condo. Per patient, she is agreeable to [facility]. flare worker then called and spoke with patient son, Gee Lam [[phone]], who states he vargas not want his mother to stay in a SNF long-term, but is agreeable to temporary placement in order to figure out a long-term plan for his mother. Per Gee, he is agreeable to [facility]. flare worker will continue to follow-up with patient and patient family as needed.
--- NOTE | 2018-11-01 18:05 | NUR ---
GPS: RECEIVED PATIENT ASLEEP ON BED, PATIENT AOX3-4, REMAINS ISOLATIVE AND WITHDRAWN, DENIES PAIN , NO SOB NO DISCOMFORT NOTED, PATIENT STAYED IN HER ROOM AND SELECTIVELY REFUSING HER MEDICATION, PATIENT REFUSED HER MEAL, AND EXPRESS ANXIOUSNESS, PRN MEDICATION GIVEN ORDERED, KEPT COMFORTABLE, AND REDIRECT PATIENT WITH ACTIVITY, WILL CONTINUE MONITOR
[2018-11-01 20:00] VITALS: BP 101/53
[2018-11-01] MEDS: MIRTAZAPINE 15 MG TABLET PO SCH (20:30)
--- NOTE | 2018-11-01 22:00 | NUR ---
received to care, isolative but pleasant upon approach. compliant with medications and staff direction. a sof 2200, she remains awake. no distress noted. will continue to monitor closely.
--- NOTE | 2018-11-01 23:14 | NUR ---
remains awake. PRN restoril, given at this time.
--- NOTE | 2018-11-02 00:10 | NUR ---
appears to be asleep. no distress noted.
--- NOTE | 2018-11-02 07:04 | NUR ---
slept 9.5 hours
[2018-11-02 07:30] VITALS: BP 121/54
[2018-11-02] MEDS: MULTIVITAMINS,THERAPEUTIC TABLET PO SCH (08:51)
[2018-11-02] MEDS: METOPROLOL TARTRATE 25 MG TABLET PO SCH (08:51)
[2018-11-02] MEDS: FAMOTIDINE 20 MG TABLET PO SCH (08:51)
[2018-11-02] MEDS: Z GUARD REMEDY PASTE 57 GM TUBE TOP SCH (08:53)
--- NOTE | 2018-11-02 09:40 | NUR ---
DC NOTE: Patient will be discharged to [facility] [[address] [place] [address]; ] and transportation will be provided by ambulance at 4:30pm. Please arrange ambulance transportation for this patient. Acceptance at the facility has been made by Justin Siddiqui, charter coordinator, who states they are ready to accept the patient today. Patient is AxOx4, denies suicidal and homicidal ideations, is able to plan for self-care, and is agreeable with discharge plans. Patient son, Gee Lam [[phone]], has been made aware of discharge and he is agreeable with plans. Patient will follow-up with Dr. Jones (psychiatrist) and Dr. Moses (recruiting intern) at the facility. Patient has been provided with a list of mental health resources including [facility] Crisis Line [ ], [facility] Douglas [ ], and National Suicide Prevention Lifeline [ ].
--- NOTE | 2018-11-02 15:26 | NUR ---
Gps/Base Brander- Called [facility], spoked to Angela Sequeira, reports given. Patient was well informed of her discharged, Abida Sequeira explained to patient answered questions asked by patient in Italian. All belongs was given back to patient.Discharged time via ambulance arranged at 1630 .
[2018-11-02 16:17] VITALS: BP 119/63
--- NOTE | 2018-11-02 18:55 | NUR ---
Gps/Sales Assistant Entertainment [employer] Media- Discharged to [facility] via ambulance no complaints, no distress noted.
== END 2018-11-02 18:55 | DRG 885 ==
LOC: GPS 20:30
PROVIDERS: ADMIT Psychiatry & Neurology Psychiatry; ATTEND Internal Medicine
DX: F33.2 Major depressive disorder, recurrent severe without psychotic features (principal); N17.0 Acute kidney failure with tubular necrosis; G92 Toxic encephalopathy; C91.10 Chronic lymphocytic leukemia of B-cell type not having achieved remission; D68.59 Other primary thrombophilia; J34.1 Cyst and mucocele of nose and nasal sinus; Z74.09 Other reduced mobility; Z91.81 History of falling; E86.0 Dehydration; D69.59 Other secondary thrombocytopenia; Z87.81 Personal history of (healed) traumatic fracture; F41.9 Anxiety disorder, unspecified
CPT/HCPCS: 36415

== ENCOUNTER 2019-01-31 21:07 | Inpatient (IN) | payer MEDICARE, MEDICAID ==
[~2019-01-31] VITALS: Ht 152.4 cm; Wt 56.0 kg
[~2019-01-31 21:07] MED LIST changes: -CLON0.5T PO; +ENOX40DI SQ; +HYDR-3326 PO; -MIRT15TA PO; -MIRT15TA7 PO; +ONDA4TAB5 PO; +PANT40TA2 PO; -TEMA7.5C PO
[2019-01-31] MEDS ORDERED: LORAZEPAM 0.5 MG TABLET PO ONE (21:15)
--- NOTE | 2019-01-31 21:23 | NUR ---
PATIENT UNABLE TO RECALL ALL HOME MEDICATION NAMES AND DOSAGES AT THIS TIME
--- NOTE | 2019-01-31 21:25 | NUR ---
Suicide precautions implemented. 1:1 sitter at bedside for pt safety. All belongings out of pt room.
[2019-01-31] MEDS ORDERED: LORAZEPAM 1 MG TABLET ONE (21:29)
[2019-01-31 21:46] LABS: BASOPHILS % (AUTO) 0.2 % (0.0-2.0); HEMATOCRIT 30.7 % (31.2-41.9); HEMOGLOBIN 10.1 g/dL (10.9-14.3); LYMPHOCYTES % (AUTO) 62.1 % (20.5-51.5); MEAN CORPUSCULAR HEMOGLOBIN 29.3 uug (24.7-32.8); MEAN CORPUSCULAR HGB CONC 33 g/dL (32.3-35.6); MEAN CORPUSCULAR VOLUME 88.7 fL (75.5-95.3); MONOCYTES # (AUTO) 0.5 K/uL (2.0-10.0); MONOCYTES % (AUTO) 2.6 % (0.0-11.0); NEUTROPHILS # (AUTO) 7.3 K/uL (1.8-8.9); NEUTROPHILS % (AUTO) 35.1 % (38.5-71.5); PLATELET COUNT (AUTO) 161 K/uL (179-408); RED BLOOD CELL COUNT(AUTO) 3.46 MIL/uL (3.63-4.92); WHITE BLOOD COUNT (AUTO) 20.9 K/uL (3.8-11.8)
[2019-01-31 21:55] LABS: CARBON DIOXIDE 25 mmol/L (21-32); CHLORIDE 108 mmol/L (98-107); CREATININE 0.8 mg/dL (0.6-1.3); GLUCOSE 113 mg/dL (74-106); POTASSIUM 4.2 mmol/L (3.5-5.1); UREA NITROGEN, BLOOD 16 mg/dL (7-18)
--- NOTE | 2019-01-31 21:57 | NUR ---
Pt unable to provide urine sample at this time. aware.
--- NOTE | 2019-01-31 22:00 | NUR ---
Pt requests to have in/out catheter to collect urine.
[2019-01-31 22:01] LABS: ACETAMINOPHEN < 2.0 ug/mL (10-30); ALANINE AMINOTRANSFERASE 17 U/L (14-59); ALKALINE PHOSPHATASE 49 U/L (50-136); ASPARTATE AMINOTRANSFERASE 16 U/L (15-37); BILIRUBIN,DIRECT 0.1 mg/dL (0.0-0.2); BILIRUBIN,TOTAL 0.6 mg/dL (0.2-1.0); TOTAL PROTEIN, SERUM 6.6 g/dL (6.4-8.2)
[2019-01-31 22:02] LABS: ETHANOL < 3 MG/DL (0-0)
[2019-01-31 22:16] LABS: LYMPHOCYTES % (MANUAL) 61 % (20-40); MONOCYTES % (MANUAL) 2 % (2-10); NEUTROPHILS % (MANUAL) 37 % (42-75)
[2019-01-31 22:22] LABS: THYROID STIMULATING HORMONE 2.051 mIU/mL (0.358-3.740)
[2019-01-31 22:29] LABS: *BILIRUBIN,URIN NEGATIVE (NEGATIVE); *BLOOD, URINE 2+ (NEGATIVE); *CLARITY,URINE CLOUDY (CLEAR); *COLOR,URINE YELLOW (YELLOW); *KETONES,URINE 2+ (NEGATIVE); *UROBILINOGEN,URINE 0.2 E.U./dl (NORMAL); LEUKOCYTE ESTERASE ,URINE TRACE (NEGATIVE); NITRITE, URINE POSITIVE (NEGATIVE); UGLUCOSE NEGATIVE (NEGATIVE)
--- NOTE | 2019-01-31 22:30 | NUR ---
Pt is medically cleared by LIANNE Brewer MD.
--- NOTE | 2019-01-31 22:31 | NUR ---
Left message for Tiff Colón LCSW, regarding PET team evaluation.
--- NOTE | 2019-01-31 22:34 | NUR ---
Paged PET Team for psych evaluation.
[2019-01-31 22:45] LABS: *AMPHETAMINE, URINE NEGATIVE (NEGATIVE); *BARBITURATE, URINE POSITIVE (NEGATIVE); *CANNABINOID, URINE NEGATIVE (NEGATIVE); *COCCAINE, URINE NEGATIVE (NEGATIVE); *OPIATE, URINE NEGATIVE (NEGATIVE); *PHENCYCLIDINE SCREEN,URINE NEGATIVE (NEGATIVE)
[2019-01-31 23:07] LABS: BACTERIA,URINE MANY /HPF (NONE SEEN); SQUAMOUS EPITHELIAL CELL,UR FEW /HPF (NONE SEEN)
[2019-01-31 23:09] LABS: URINE AMORPHOUS PHOSPHATES MANY /HPF
[2019-01-31] MEDS ORDERED: ESCI10TA PO (23:24)
[2019-01-31] MEDS ORDERED: metoprolol tartrate (23:24)
[2019-01-31] MEDS ORDERED: ALPR0.255 PO (23:24)
[2019-01-31] MEDS ORDERED: temazepam PO (23:24)
--- NOTE | 2019-01-31 23:33 | NUR ---
Lluvia, from PET Team, ETA 15 min.
--- NOTE | 2019-01-31 23:46 | NUR ---
Brittney Isaac arrived in ER for pt psych evaluation.
--- NOTE | 2019-02-01 00:44 | NUR ---
Report given to Viv MARIO Medsurg/MHU overflow.
[2019-02-01] MEDS ORDERED: BLOOD SUGAR DIAGNOSTIC 1 EACH STRIP VI ONE (01:45)
[2019-02-01] MEDS ORDERED: MAGNESIUM HYDROXIDE 30 ML LIQUID UDC PO PRN (01:45)
[2019-02-01] MEDS ORDERED: MAG HYDROX/AL HYDROX/SIMETH 30 ML LIQUID UDC PO PRN (01:45)
[2019-02-01] MEDS: TEMAZEPAM 7.5 MG CAPSULE PO PRN (02:36)
--- NOTE | 2019-02-01 06:08 | NUR ---
No changes t/o shift. Patient slept t/o shift. Patient is calm and cooperative. 1:1 sitter at bedside. Denies SI at the moment. Med complaint. All needs met.
[2019-02-01 08:51] VITALS: BP 133/62
[2019-02-01] MEDS: LORAZEPAM 0.5 MG TABLET PO PRN ×2 (09:12→15:34)
[2019-02-01] MEDS: ESCITALOPRAM OXALATE 10 MG TABLET PO SCH (09:12)
--- NOTE | 2019-02-01 13:48 | NUR ---
Initial Discharge Planning: Patient currently lives on her own at her condo located in [address] [place] [address]. [address], [facility] [address]; . Occupational Therapy Manager spoke with patient's son - Josué Lam [[phone]] who is requesting assisted living facility/SNF for patient upon discharge. Occupational Therapy Manager will continue to meet with patient, and collaborate with patient, family, and MD on a safe and proper discharge.
--- NOTE | 2019-02-01 14:01 | NUR ---
FIREARMS REPORT: Equipment Service Technician completed and submitted a [employer] firearms report for 5150 DTS certification. A copy of report has been placed in patient chart.
[2019-02-01] MEDS: CEphaleXIN 250 MG CAPSULE PO SCH ×2 (14:41→22:00)
[2019-02-01 15:05] VITALS: BP 144/59
--- NOTE | 2019-02-01 16:27 | NUR ---
pt is talking to the sitter she will tonight so she did not need medical and medicare ,at thiis point sitter is at bed side monitoring the pt very closely
--- NOTE | 2019-02-01 19:50 | NUR ---
PATIENT VERY AGITATED AT THIS TIME. COMBATIVE TOWARDS STAFF AND BANGING ON THE GRIJALVA. UNABLE TO REDIRECT. CALLED OUT TO DR. GARCIA FOR FURTHER ORDERS. ALL NEEDS ATTENDED. SITTER AT BEDSIDE.
[2019-02-01] MEDS ORDERED: LORAZEPAM 2 MG/1 ML VIAL IM STA (20:04)
--- NOTE | 2019-02-01 20:05 | NUR ---
RECEIVED ORDER FOR ATIVAN 1MG IM STAT.
[2019-02-01 20:06] VITALS: BP 132/66
--- NOTE | 2019-02-01 20:30 | NUR ---
PATIENT GIVEN ATIVAN 1MG IM ORDERED. SITTER AT BEDSIDE FOR SAFETY.
[2019-02-01] MEDS: METOPROLOL TARTRATE 25 MG TABLET PO SCH (21:00)
--- NOTE | 2019-02-01 21:00 | NUR ---
PATIENT AWAKE IN BED. CLOSELY MONITORED. NO RESP. DISTRESS NOTED. BED ALARM ON. SITTER AT BEDSIDE. WILL CONTINUE TO MONITOR AND ASSESS.
--- NOTE | 2019-02-01 23:00 | NUR ---
PATIENT ASLEEP. SITTER AT BEDSIDE.
[2019-02-02] MEDS: CEphaleXIN 250 MG CAPSULE PO SCH ×4 (05:48→22:00)
--- NOTE | 2019-02-02 06:01 | NUR ---
patient awake in bed. refused 0600 keflex. slept 7 1/2 hours. sitter at bedside for safety. bed alarm on. all needs attended. WILL CONTINUE TO MONITOR AND ASSESS.
[2019-02-02 06:23] LABS: CARBON DIOXIDE 27 mmol/L (21-32); CHLORIDE 107 mmol/L (98-107); CREATININE 0.8 mg/dL (0.6-1.3); GLUCOSE 90 mg/dL (74-106); MAGNESIUM 1.9 mg/dL (1.8-2.4); PHOSPHOROUS 3.4 mg/dL (2.5-4.9); POTASSIUM 3.9 mmol/L (3.5-5.1); UREA NITROGEN, BLOOD 18 mg/dL (7-18)
[2019-02-02 06:51] LABS: BASOPHILS % (AUTO) 0.2 % (0.0-2.0); EOSINOPHILS # (AUTO) 0.1 K/uL (0.0-0.7); EOSINOPHILS % (AUTO) 0.7 % (0.0-7.0); HEMATOCRIT 29.2 % (31.2-41.9); HEMOGLOBIN 9.8 g/dL (10.9-14.3); LYMPHOCYTES % (AUTO) 75.4 % (20.5-51.5); MEAN CORPUSCULAR HEMOGLOBIN 29.6 uug (24.7-32.8); MEAN CORPUSCULAR HGB CONC 34 g/dL (32.3-35.6); MEAN CORPUSCULAR VOLUME 88.4 fL (75.5-95.3); MONOCYTES # (AUTO) 0.4 K/uL (2.0-10.0); MONOCYTES % (AUTO) 2.5 % (0.0-11.0); NEUTROPHILS # (AUTO) 3.1 K/uL (1.8-8.9); NEUTROPHILS % (AUTO) 21.2 % (38.5-71.5); PLATELET COUNT (AUTO) 141 K/uL (179-408)
[2019-02-02 07:02] LABS: WHITE BLOOD COUNT (AUTO) 14.6 K/uL (3.8-11.8)
[2019-02-02 07:30] VITALS: BP 150/80
--- NOTE | 2019-02-02 08:02 | NUR ---
Patient resting in bed at this time. No signs of distress, stable condition. Patient is awake, only alert to self. Patient attempted to get up out of bed, stood, but appeared to feel dizzy and presents with unsteady gait. 1:1 sitter at bedside. Patient placed back into bed safely. Patient verbalizes "I do not need your help, you make me more sick". Appears to be slightly agitated and non-compliant. Safety measures implemented. Fall precautions implemented. Will continue to monitor throughout shift.
[2019-02-02] MEDS: METOPROLOL TARTRATE 25 MG TABLET PO SCH ×2 (09:00→21:00)
[2019-02-02] MEDS: ESCITALOPRAM OXALATE 10 MG TABLET PO SCH ×2 (09:00→17:05)
--- NOTE | 2019-02-02 09:28 | NUR ---
PT REFUSED BP MEDS. PT WAS LET KNOWN ABOUT HIGH BLOOD PRESSURE. PT IS ADAMANT ABOUT NOT TAKING MEDICATIONS. PT STATES "LEAVE ME ALONE AND GO YOUR OWN WAY". PT WAS LET KNOWN OF IMPORTANCE OF TAKING HER BP MEDS. PT CONTINUED TO REFUSE. DR MARY DONATO AWARE OF PT'S REFUSAL AND BP OF 150/80. PT REFUSED ESCITALOPRAM WELL. PT REFUSES TO TAKE ANY PO MEDS.
[2019-02-02 10:26] LABS: NEUTROPHILS % (MANUAL) 22 % (42-75)
[2019-02-02 10:27] LABS: EOSINOPHILS % (MANUAL) 2 % (0-8); LYMPHOCYTES % (MANUAL) 75 % (20-40); MONOCYTES % (MANUAL) 1 % (2-10)
--- NOTE | 2019-02-02 11:30 | NUR ---
PT STATES "I WANT TO , KILL ME". AWARE
--- NOTE | 2019-02-02 13:00 | NUR ---
PT RESTING IN BED AT THIS TIME. PT REFUSES TO EAT LUNCH AT THIS TIME. WILL CONTINUE TO MONITOR.
[2019-02-02 13:45] VITALS: BP 168/80
--- NOTE | 2019-02-02 14:20 | NUR ---
PT REFUSES TO TAKE HER SCHEDULE MEDICATIONS. DR DONATO INFORMED. WILL CONTINUE TO MONITOR.
--- NOTE | 2019-02-02 15:30 | NUR ---
PT VERBALIZED "LET ME GO TO SLEEP SO I CAN " PT BEING MONITORED. 1:1 SITTER AT BEDSIDE FOR SAFETY. ENVIRONMENTAL SAFETY CHECKED FOR SUICIDAL PT IMPLEMENTED. NO ACUTE DISTRESS NOTED.
--- NOTE | 2019-02-02 15:35 | NUR ---
PT REQUESTED LEXAPRO. AT TIME OF ADMINISTRATION PT REQUESTED TO SEE PILL AND PACKAGE. PACKAGE READ ESCITALOPRAM, TO WHICH THE PATIENT REFUSED, ALTHOUGH THOROUGH EXPLANATION WAS GIVEN OF DIFFERENT NAMES FOR SAME MEDICINE. PT ADAMANTLY REFUSED MEDS. WILL CONTINUE TO MONITOR.
--- NOTE | 2019-02-02 17:12 | NUR ---
PT TOOK LEXAPRO AND KEFLEX. PRESENT AND EXPLAINED TO PT THE IMPORTANCE OF TAKING MEDICATIONS PRESCRIBED NURSE DID BEFORE. PT SEEMED COMFORTABLE WITH ME EXPLANATION AND TOOK MEDS. WILL CONTINUE TO MONITOR PT.
--- NOTE | 2019-02-02 17:40 | NUR ---
Dr. Burt visited patient at this time. Informed Dr. Burt of patient's behavior today (refusing medications, refusing to eat), verbalizing suicidal thoughts. MD says to continue to monitor and assess closely. No other orders provided by MD. After Dr. Burt spoke with patient, patient became compliant with medications, taking keflex and lexapro. Patient refused the metoprolol. systolic BP in the 120s when BP taken. Patient in stable condition. No signs of distress.
--- NOTE | 2019-02-02 18:00 | NUR ---
PT IS AWAKE IN ROOM AT TIMES IN BED AT TIMES WALKING IN ROOM. 1:1 SITTER AT BEDSIDE. BED ALARM ON. PT'S NEEDS ATTENDED. WILL CONTINUE TO MONITOR AND ASSESS FOR SAFETY AND COMPLIANCE.
--- NOTE | 2019-02-02 19:30 | NUR ---
Received patient sitting in bed awake, A&Ox2. Continue on 1:1 sitter for suicidal ideation. Not in distress at this time. Will continue to monitor for safety
[2019-02-02] MEDS: TEMAZEPAM 7.5 MG CAPSULE PO PRN (21:32)
--- NOTE | 2019-02-02 22:30 | NUR ---
Patient is non-compliant and refused her scheduled meds, offered x 3 but still refused. Patient only asked for her sleeping pill, PRN sleeping pill given.
[2019-02-03] MEDS: CEphaleXIN 250 MG CAPSULE PO SCH ×3 (06:00→21:00)
[2019-02-03] MEDS: LORAZEPAM 0.5 MG TABLET PO PRN ×3 (06:28→20:59)
--- NOTE | 2019-02-03 06:57 | NUR ---
Patient slept for 3 hrs. Noted walking in her room. Patient stated she wanted to talk to her son and would like to call them later. Patient also asked for her anxiety medicine, PRN Ativan given. Cont w/ 1:1 sitter for suicidal ideation. Will endorse accordingly
[2019-02-03 07:09] VITALS: BP 146/70
[2019-02-03] MEDS: ESCITALOPRAM OXALATE 10 MG TABLET PO SCH (08:15)
[2019-02-03] MEDS: METOPROLOL TARTRATE 25 MG TABLET PO SCH ×2 (09:00→20:54)
[2019-02-03 15:14] VITALS: BP 152/69
--- NOTE | 2019-02-03 17:59 | NUR ---
Patient resting in bed comfortably at this time. In no acute distress. 1:1 sitter at bedside. Refused blood pressure medication. No aggressive behavior noted. Seen by psychiatrist. Put on 14 day old that ends on 02/17. Will endorse to maintenance technician 2nd shift nurse accordingly.
--- NOTE | 2019-02-03 19:45 | NUR ---
Patient is a Togolese speaking female. When assessed: reported being off her antidepressants for a while which caused SI, improving now with Lexapro. Denies SI or plan, HI, AH, VH, mood is fair, occasional smile. Speech is clear oriented X3. Reports having support system in her children. Has a good understanding of her medication regimen. Patient is in bed, with good independent mobility. Appropriate behavior, cooperative with care. Sitter is at bedside. Comfort and safety measures are in place.
[2019-02-03 20:00] VITALS: BP 116/60
[2019-02-04] MEDS: CEphaleXIN 250 MG CAPSULE PO SCH ×3 (06:30→21:16)
--- NOTE | 2019-02-04 06:53 | NUR ---
patient slept well at night, ambulated to the bathroom, compliant with care, denies SI. Sitter at bedside.
[2019-02-04 07:10] VITALS: BP 158/70
[2019-02-04] MEDS: METOPROLOL TARTRATE 25 MG TABLET PO SCH ×2 (08:03→21:16)
[2019-02-04] MEDS: ESCITALOPRAM OXALATE 10 MG TABLET PO SCH ×2 (09:00→09:45)
--- NOTE | 2019-02-04 10:47 | NUR ---
PT VERBALIZED GIVE ME SOMETHING TO SLEEP SO I CAN I AM TO OLD AND I DO NOT WANT TO LIVE AND PT IS KEEP ASKING PLEASE HELP ME , PT BEING MONITORED. 1:1 SITTER AT BEDSIDE FOR SAFETY.
[2019-02-04] MEDS: LORAZEPAM 0.5 MG TABLET PO PRN (11:56)
[2019-02-04 14:56] VITALS: BP 125/59
[2019-02-04 19:31] VITALS: BP 177/74
--- NOTE | 2019-02-04 20:00 | NUR ---
AWAKE ALERTX2 COOPERATIVE NO IDEATION FOR SUICIDE. TALK ABOUT HER FAMILY,N COMPLAINTS.SITTER AT BEDSIDE.
[2019-02-05] MEDS: LORAZEPAM 0.5 MG TABLET PO PRN ×3 (01:47→20:35)
--- NOTE | 2019-02-05 02:00 | NUR ---
SLIGHTLY AGITATED, ATIVAN 0.5MG GIVEN. ,UNABLE TO SLEEP RESTORIL 7.5MG PO GIVEN.
[2019-02-05] MEDS: TEMAZEPAM 7.5 MG CAPSULE PO PRN (02:57)
[2019-02-05] MEDS: CEphaleXIN 250 MG CAPSULE PO SCH ×4 (06:17→21:20)
[2019-02-05 06:54] VITALS: BP 132/63
[2019-02-05 07:37] VITALS: BP 165/75
--- NOTE | 2019-02-05 07:42 | NUR ---
TOOK MEDICATION BP 130/70 SLEPT FOR 4 HOURS.
--- NOTE | 2019-02-05 08:30 | NUR ---
pt refused to eat and feeling very depressed ,saying she do not want to eat she wants ti sitter at bed side
[2019-02-05] MEDS: METOPROLOL TARTRATE 25 MG TABLET PO SCH ×2 (09:00→20:30)
[2019-02-05] MEDS: ESCITALOPRAM OXALATE 10 MG TABLET PO SCH (10:10)
[2019-02-05 15:44] VITALS: BP 165/75
--- NOTE | 2019-02-05 19:40 | NUR ---
Received patient awake and alert in bed with 1:1 sitter at bedside. Patient is A/Ox3. No signs of acute distress noted. No complaints of pain or SOB. Patient is pleasant upon approach, interacting with sitter very well. No SI at this time. Safety measures initiated.
--- NOTE | 2019-02-05 21:20 | NUR ---
Patient refused Keflex even after educating and encouraging, but patient still refused. Will continue to monitor.
[2019-02-06] MEDS: LORAZEPAM 0.5 MG TABLET PO PRN ×4 (02:56→23:32)
[2019-02-06] MEDS: ACETAMINOPHEN 325 MG TABLET PO PRN (02:56)
[2019-02-06 04:00] VITALS: BP 143/55
[2019-02-06 05:51] LABS: BASOPHILS % (AUTO) 0.2 % (0.0-2.0); EOSINOPHILS % (AUTO) 0.3 % (0.0-7.0); HEMATOCRIT 29.9 % (31.2-41.9); LYMPHOCYTES # (AUTO) 12.5 K/uL (20.0-40.0); LYMPHOCYTES % (AUTO) 72.8 % (20.5-51.5); MEAN CORPUSCULAR HEMOGLOBIN 28.9 uug (24.7-32.8); MEAN CORPUSCULAR HGB CONC 34 g/dL (32.3-35.6); MEAN CORPUSCULAR VOLUME 86.4 fL (75.5-95.3); MONOCYTES # (AUTO) 0.4 K/uL (2.0-10.0); MONOCYTES % (AUTO) 2.5 % (0.0-11.0); NEUTROPHILS # (AUTO) 4.2 K/uL (1.8-8.9); NEUTROPHILS % (AUTO) 24.2 % (38.5-71.5); PLATELET COUNT (AUTO) 157 K/uL (179-408); RED BLOOD CELL COUNT(AUTO) 3.46 MIL/uL (3.63-4.92); WHITE BLOOD COUNT (AUTO) 17.1 K/uL (3.8-11.8)
[2019-02-06 05:58] LABS: CARBON DIOXIDE 28 mmol/L (21-32); CHLORIDE 103 mmol/L (98-107); CREATININE 0.9 mg/dL (0.6-1.3); GLUCOSE 103 mg/dL (74-106); MAGNESIUM 1.9 mg/dL (1.8-2.4); PHOSPHOROUS 3.5 mg/dL (2.5-4.9); POTASSIUM 4.1 mmol/L (3.5-5.1); UREA NITROGEN, BLOOD 17 mg/dL (7-18)
[2019-02-06] MEDS: CEphaleXIN 250 MG CAPSULE PO SCH ×3 (06:00→21:00)
[2019-02-06 06:49] LABS: LYMPHOCYTES % (MANUAL) 71 % (20-40); MONOCYTES % (MANUAL) 1 % (2-10); NEUTROPHILS % (MANUAL) 27 % (42-75)
[2019-02-06 07:07] VITALS: BP 161/73
--- NOTE | 2019-02-06 07:35 | NUR ---
CALL RECEIVED FROM DR VILLALOBOS AWARE THAT PATIENT HAS BEEN REFUSING HER MEDICATIONS AND HE STATED TO KEEP ENCOURAGING HER TO TAKE MEDICATIONS ESPECIALLY HER ANTIBIOTICS.PATIENT HAS A ONE ON ONE SITTER RELATED TO HOLD STATUS MADE COMFORTABLE AND WILL CONTINUE TO OBSERVE.
[2019-02-06] MEDS: METOPROLOL TARTRATE 25 MG TABLET PO SCH ×2 (09:00→20:57)
[2019-02-06] MEDS: ESCITALOPRAM OXALATE 10 MG TABLET PO SCH (09:31)
--- NOTE | 2019-02-06 14:00 | NUR ---
TOOK HER ATB ORDERED AT THIS TIME
[2019-02-06 14:30] VITALS: BP 127/63
--- NOTE | 2019-02-06 18:00 | NUR ---
PATIENT WAS MEDICATED X2 FOR C/O ANXIETY AND HELPFUL WILL CONTINUE TO OBSERVE.
--- NOTE | 2019-02-06 19:20 | NUR ---
RECEIVED PT AWAKE WITH SITTER AT BEDSIDE. PT WITH NO S.I. PT COOPERATIVE WITH CARE. SAFETY AND COMFORT PROVIDED.WILL CONTINUE TO MONITOR.
[2019-02-06 19:38] VITALS: BP 127/63
--- NOTE | 2019-02-06 23:25 | NUR ---
HANDS OFF REPORT TO DEVAN MARIO. PT STABLE AND IN NO ACUTE DISTRESS. PT WHEELED OUT FROM MED SURG VIA WHEELCHAIR. PT COOPERATIVE WITH CARE. PT REFUSED HER METROPOLOL MEDICATION BECAUSE SHE SAID HER BP IS NORMAL. PT REQUESTED HER ATIVAN MEDICATION BECAUSE SHE IS SAYING SHE IS GETTING AGITATED. PT STABLE.
--- NOTE | 2019-02-06 23:30 | NUR ---
Received patient via wheelchair from med surg unit. Patient appears calm and cooperative. Oriented to environment and room. Patient in bed resting. No acute distress noted. Continuing to monitor for safety, bed alarm on.
[2019-02-07] MEDS: CEphaleXIN 250 MG CAPSULE PO SCH ×3 (06:00→22:00)
--- NOTE | 2019-02-07 06:41 | NUR ---
Patient refused to take po keflex this am. Many attempts made, but patient being uncooperative. Will endorse to the next shift.
[2019-02-07 07:30] VITALS: BP 148/67
[2019-02-07 07:41] LABS: BASOPHILS % (AUTO) 0.2 % (0.0-2.0); EOSINOPHILS % (AUTO) 0.1 % (0.0-7.0); HEMATOCRIT 32.8 % (31.2-41.9); HEMOGLOBIN 10.9 g/dL (10.9-14.3); LYMPHOCYTES % (AUTO) 78.5 % (20.5-51.5); MEAN CORPUSCULAR HEMOGLOBIN 29.2 uug (24.7-32.8); MEAN CORPUSCULAR HGB CONC 33 g/dL (32.3-35.6); MEAN CORPUSCULAR VOLUME 87.4 fL (75.5-95.3); MONOCYTES # (AUTO) 0.3 K/uL (2.0-10.0); MONOCYTES % (AUTO) 1.7 % (0.0-11.0); NEUTROPHILS # (AUTO) 3.7 K/uL (1.8-8.9); NEUTROPHILS % (AUTO) 19.5 % (38.5-71.5); PLATELET COUNT (AUTO) 174 K/uL (179-408); RED BLOOD CELL COUNT(AUTO) 3.75 MIL/uL (3.63-4.92); WHITE BLOOD COUNT (AUTO) 19.1 K/uL (3.8-11.8)
[2019-02-07 07:46] LABS: CARBON DIOXIDE 28 mmol/L (21-32); CHLORIDE 103 mmol/L (98-107); CREATININE 0.7 mg/dL (0.6-1.3); GLUCOSE 101 mg/dL (74-106); PHOSPHOROUS 3.6 mg/dL (2.5-4.9); POTASSIUM 3.9 mmol/L (3.5-5.1); UREA NITROGEN, BLOOD 16 mg/dL (7-18)
[2019-02-07] MEDS: ESCITALOPRAM OXALATE 10 MG TABLET PO SCH ×3 (08:20→10:00)
[2019-02-07] MEDS: METOPROLOL TARTRATE 25 MG TABLET PO SCH ×4 (08:20→21:00)
[2019-02-07 09:20] LABS: LYMPHOCYTES % (MANUAL) 66 % (20-40); MONOCYTES % (MANUAL) 2 % (2-10); NEUTROPHILS % (MANUAL) 31 % (42-75)
[2019-02-07] MEDS: LORAZEPAM 0.5 MG TABLET PO PRN (11:02)
[2019-02-07] MEDS: ACETAMINOPHEN 325 MG TABLET PO PRN (11:58)
[2019-02-07 16:00] VITALS: BP 128/54
--- NOTE | 2019-02-07 18:24 | NUR ---
GPS: patient received aox2, withdrawn , isolative, refuses her antibiotics , attempted to offer several times throughout the day, patient still refuse even after explaining the need to take antibiotic, seen and examine by Infectious Disease specialist, patient seen eating her dinner, ambulatory, will continue monitor
[2019-02-07 21:22] VITALS: BP 126/61
--- NOTE | 2019-02-07 21:45 | NUR ---
PATIENT RECEIVED IN ROOM PATIENT AOX1, AMBULATORY ,PATIENT NEEDS PROMPTING IN TAKING HER MEDICATION, PATIENT REFUSED MEDICATION "NOTHING IS WRONG WITH MY BLOOD PRESSURE, AND I HAVE NO INFECTION."CONTINUED TO EDUCATED PATIENT AND ON THE IMPORTANCE OF TAKING MEDICATION, IS STILL REFUSING MEDICATION. PATIENT IS WONDERING IN OTHER PATIENT'S ROOMS REQUIRES CONSTANT REDIRECTION. PATIENT IS NEEDY. PATIENT DENIES PAIN AT THIS TIME, WILL CONTINUE TO MONITOR. BED IN LOWEST POSITION, BED LOCKED, AND BED ALARM ON WHILE IN BED.
[2019-02-08] MEDS: ACETAMINOPHEN 325 MG TABLET PO PRN ×3 (02:31→23:35)
[2019-02-08] MEDS: LORAZEPAM 0.5 MG TABLET PO PRN ×3 (02:32→23:35)
[2019-02-08] MEDS: CEphaleXIN 250 MG CAPSULE PO SCH ×3 (06:00→15:16)
[2019-02-08 07:30] VITALS: BP 146/75
[2019-02-08] MEDS: ESCITALOPRAM OXALATE 10 MG TABLET PO SCH ×2 (09:00→14:02)
[2019-02-08] MEDS: METOPROLOL TARTRATE 25 MG TABLET PO SCH ×2 (09:00→20:12)
--- NOTE | 2019-02-08 13:30 | NUR ---
Gps/High School Mathematics Teacher- Patient had been refusing routine medications prescribed. Claimed she does not needs any medications, informed patient she in in the [facility], and we are here to help her, informedf of her bladder infections, > WBC, insisted she is ok, and does not needs any medications.
--- NOTE | 2019-02-08 15:21 | NUR ---
Gps/Technical Service Rep- Per Medical stand point , oral abx. not necessary pt. was asymtomatic at this time.Patient changed mind claimed wants to take oral abx. she had been refusing .Per Adrianne RN CIRCULATING.. she does not need oral abx. patient was well informed. Adrianne aware of elevated WBC. r/t to hx.
[2019-02-08 16:00] VITALS: BP 111/78
--- NOTE | 2019-02-08 19:30 | NUR ---
Patient received into care, sitting up in bed. Patient is alert and oriented x2. Patient has no complaints fo pain or discomfort at this time. All safety and fall precaution measures are in place. Will continue to monitor.
[2019-02-08 19:45] VITALS: BP 147/68
--- NOTE | 2019-02-08 20:57 | NUR ---
Patient refused prescribed lopressor after providing patient with most recent blood pressure/hr results. Patient states she doesn't need.
--- NOTE | 2019-02-09 06:00 | NUR ---
Patient slept intermittently throughout night, receiving 3-1/2 hours of sleep. Sleep disturbance may be r/t roommate's behavior, which was addressed by roommate's nurse. Patient was not compliant with her prescribed blood pressure medication, lopressor. When asked, nurse provided patient with her most recent blood pressure and heart rate vital signs and patient stated that her blood pressure was fine. Nurse explained risks and benefits times three, but patient still refused. Patient later requested prescribed tylenol and prescribed ativan, which nurse provided as ordered. Patient showered this morning. All safety and fall precaution measures remain in place.
[2019-02-09 07:51] LABS: HEMATOCRIT 30.7 % (31.2-41.9)
[2019-02-09 07:52] LABS: CARBON DIOXIDE 31 mmol/L (21-32); CHLORIDE 103 mmol/L (98-107); CREATININE 0.8 mg/dL (0.6-1.3); GLUCOSE 100 mg/dL (74-106); MAGNESIUM 1.8 mg/dL (1.8-2.4); PHOSPHOROUS 3.6 mg/dL (2.5-4.9); POTASSIUM 3.9 mmol/L (3.5-5.1); UREA NITROGEN, BLOOD 20 mg/dL (7-18)
[2019-02-09 08:00] VITALS: BP 127/55
--- NOTE | 2019-02-09 08:46 | NUR ---
Discharge Note: Patient will be discharged to [facility] [[id number] [place] [address]; ]. Aerospace Technician spoke with Ирина, Bulk Delivery Driver, who stated patient will be accepted at facility today. Please arrange ambulance for this patient by 2:00pm. Patient is aware and agreeable with discharge plan. Aerospace Technician called and spoke with patient�s son � Josué Lam [[phone]]. Patient will follow up with Dr. Casanova (Inspector Floor) and Dr. Quan (Psychiatrist) at [facility]. Patient was given outpatient mental health resources to [facility] , Kar[facility] Douglas , and the National Suicide Prevention Lifeline
[2019-02-09] MEDS: METOPROLOL TARTRATE 25 MG TABLET PO SCH (09:00)
[2019-02-09 09:04] LABS: BASOPHILS % (AUTO) 0.2 % (0.0-2.0); EOSINOPHILS # (AUTO) 0.1 K/uL (0.0-0.7); EOSINOPHILS % (AUTO) 0.4 % (0.0-7.0); HEMOGLOBIN 10.4 g/dL (10.9-14.3); LYMPHOCYTES # (AUTO) 15.9 K/uL (20.0-40.0); LYMPHOCYTES % (AUTO) 81.7 % (20.5-51.5); MEAN CORPUSCULAR HEMOGLOBIN 29.6 uug (24.7-32.8); MEAN CORPUSCULAR HGB CONC 34 g/dL (32.3-35.6); MEAN CORPUSCULAR VOLUME 87.6 fL (75.5-95.3); MONOCYTES # (AUTO) 0.4 K/uL (2.0-10.0); MONOCYTES % (AUTO) 2.2 % (0.0-11.0); NEUTROPHILS % (AUTO) 15.5 % (38.5-71.5); PLATELET COUNT (AUTO) 163 K/uL (179-408); WHITE BLOOD COUNT (AUTO) 19.4 K/uL (3.8-11.8)
[2019-02-09] MEDS: ESCITALOPRAM OXALATE 10 MG TABLET PO SCH (09:05)
--- NOTE | 2019-02-09 09:09 | NUR ---
Gps/Cloud Services Architect- Paranoid, suspicious that staff had been giving her wrong medication(Lexapro), reviewed with patient, openned med .infront of her, reassured pt. Refusing to take Metoprolol, claimed she never have high blood pressure.
[2019-02-09 10:10] LABS: LYMPHOCYTES % (MANUAL) 82 % (20-40); MONOCYTES % (MANUAL) 1 % (2-10); NEUTROPHILS % (MANUAL) 17 % (42-75)
[2019-02-09] MEDS: ACETAMINOPHEN 325 MG TABLET PO PRN (12:03)
--- NOTE | 2019-02-09 15:58 | NUR ---
Gps/Sql Etl Developer- Patient hesitant to leave , suspicious she might stay at the facility for a longer period of time. Patient kept asking for little things , buying her time. Had questions about how many patient in one room. All belongings given back to patient , used shoes provided as per pt. request .Patient agreed to leave after reassurance and after staff and son talked to her. Discharged via ambulance in no distress, no new c/o offered .
== END 2019-02-09 16:11 | DRG 885 ==
LOC: ER 21:09 → GPSOV3 02-01 00:20 → GPS 02-06 23:29
PROVIDERS: ADMIT Psychiatry & Neurology Psychiatry; ATTEND Nurse Practitioner Acute Care
DX: F33.2 Major depressive disorder, recurrent severe without psychotic features (principal); C91.10 Chronic lymphocytic leukemia of B-cell type not having achieved remission; N39.0 Urinary tract infection, site not specified; G47.9 Sleep disorder, unspecified; E11.9 Type 2 diabetes mellitus without complications; F03.90 Unspecified dementia, unspecified severity, without behavioral disturbance, psychotic disturbance, mood disturbance, and anxiety; I25.10 Atherosclerotic heart disease of native coronary artery without angina pectoris; I70.0 Atherosclerosis of aorta; N28.1 Cyst of kidney, acquired; Z60.2 Problems related to living alone; D63.8 Anemia in other chronic diseases classified elsewhere; G47.00 Insomnia, unspecified; F41.9 Anxiety disorder, unspecified; B96.89 Other specified bacterial agents as the cause of diseases classified elsewhere; Z91.81 History of falling; Z91.14 Patient's other noncompliance with medication regimen
CPT/HCPCS: 36415; 70030-TC; 80307; 83735; 84100; 84443; 85025; 87086; 93005; A4663; C1758; G0480; G0480-TC; J2060

== ENCOUNTER 2019-03-20 07:15 | Inpatient (IN) | payer MEDICARE, MEDICAID ==
[~2019-03-20] VITALS: Ht 157.5 cm; Wt 54.4 kg
[~2019-03-20 07:15] MED LIST changes: -ACET-2154 PO; -ENOX40DI SQ; -FAMO-132 PO; -HYDR-3326 PO; -MAG355OR18 PO; -MAGN400O6 PO; -METO25TA6 PO; -MULT1TAB73 PO; -ONDA4TAB5 PO; -PANT40TA2 PO; +metoprolol tartrate
--- NOTE | 2019-03-20 07:28 | NUR ---
Pt is in room #2a. dr Uriarte evaluated the pt.
[2019-03-20 08:04] LABS: CARBON DIOXIDE 27 mmol/L (21-32); CHLORIDE 106 mmol/L (98-107); CREATININE 0.7 mg/dL (0.6-1.3); GLUCOSE 107 mg/dL (74-106); POTASSIUM 4.3 mmol/L (3.5-5.1); UREA NITROGEN, BLOOD 19 mg/dL (7-18)
[2019-03-20 08:05] LABS: ETHANOL < 3 MG/DL (0-0)
[2019-03-20] MEDS ORDERED: LORAZEPAM 0.5 MG TABLET ONE (08:15)
[2019-03-20] MEDS ORDERED: LORAZEPAM 0.5 MG TABLET PO ONE (08:15)
[2019-03-20 08:18] LABS: ALANINE AMINOTRANSFERASE 15 U/L (14-59); ALKALINE PHOSPHATASE 47 U/L (50-136); ASPARTATE AMINOTRANSFERASE 17 U/L (15-37); BILIRUBIN,DIRECT 0.1 mg/dL (0.0-0.2); BILIRUBIN,TOTAL 0.4 mg/dL (0.2-1.0); TOTAL PROTEIN, SERUM 6.8 g/dL (6.4-8.2)
[2019-03-20 08:24] LABS: *BILIRUBIN,URIN NEGATIVE (NEGATIVE); *BLOOD, URINE 1+ (NEGATIVE); *CLARITY,URINE SLIGHTLY CLOUDY (CLEAR); *COLOR,URINE YELLOW (YELLOW); *KETONES,URINE NEGATIVE (NEGATIVE); *UROBILINOGEN,URINE 0.2 E.U./dl (NORMAL); LEUKOCYTE ESTERASE ,URINE TRACE (NEGATIVE); NITRITE, URINE POSITIVE (NEGATIVE); PH,URINE 6.5 (5.0-8.0); UGLUCOSE NEGATIVE (NEGATIVE)
[2019-03-20 08:25] LABS: ACETAMINOPHEN < 2.0 ug/mL (10-30)
[2019-03-20 08:26] LABS: BASOPHILS % (AUTO) 0.2 % (0.0-2.0); EOSINOPHILS % (AUTO) 0.1 % (0.0-7.0); HEMATOCRIT 33.4 % (31.2-41.9); LYMPHOCYTES # (AUTO) 13.3 K/uL (20.0-40.0); LYMPHOCYTES % (AUTO) 73.9 % (20.5-51.5); MEAN CORPUSCULAR HEMOGLOBIN 29.2 uug (24.7-32.8); MEAN CORPUSCULAR HGB CONC 33 g/dL (32.3-35.6); MEAN CORPUSCULAR VOLUME 88.7 fL (75.5-95.3); MONOCYTES # (AUTO) 0.4 K/uL (2.0-10.0); MONOCYTES % (AUTO) 2.4 % (0.0-11.0); NEUTROPHILS # (AUTO) 4.2 K/uL (1.8-8.9); NEUTROPHILS % (AUTO) 23.4 % (38.5-71.5); PLATELET COUNT (AUTO) 160 K/uL (179-408); RED BLOOD CELL COUNT(AUTO) 3.76 MIL/uL (3.63-4.92)
[2019-03-20 08:30] LABS: *AMPHETAMINE, URINE NEGATIVE (NEGATIVE); *BARBITURATE, URINE NEGATIVE (NEGATIVE); *CANNABINOID, URINE NEGATIVE (NEGATIVE); *COCCAINE, URINE NEGATIVE (NEGATIVE); *OPIATE, URINE NEGATIVE (NEGATIVE); *PHENCYCLIDINE SCREEN,URINE NEGATIVE (NEGATIVE)
[2019-03-20 08:32] LABS: BACTERIA,URINE MANY /HPF (NONE SEEN); SQUAMOUS EPITHELIAL CELL,UR NONE SEEN /HPF (NONE SEEN)
[2019-03-20] MEDS ORDERED: CEFTRIAXONE 1 G in IV DEXTROSE 5% 50 ML IV ONE (08:45)
[2019-03-20] MEDS ORDERED: CEFTRIAXONE /D5W 50ML IVPB **ER PYXIS IV ONE (08:57)
[2019-03-20 09:02] LABS: LYMPHOCYTES % (MANUAL) 76 % (20-40); MONOCYTES % (MANUAL) 1 % (2-10); NEUTROPHILS % (MANUAL) 23 % (42-75)
--- NOTE | 2019-03-20 10:11 | NUR ---
pt was trnasfered to room #311. report was given to rn document improvement specialist.
[2019-03-20 10:52] VITALS: BP 136/58
--- NOTE | 2019-03-20 11:20 | NUR ---
pATIENT IS ADMIT TO TELE, VS WNL, NO CHEST PAIN AT THE MOMENT NO DISTRESS
[2019-03-20 11:33] VITALS: BP 136/52
[2019-03-20 15:43] VITALS: BP 135/54
--- NOTE | 2019-03-20 18:57 | NUR ---
PATIENT AO3, NO CHEST PAIN SINCE ADMISSION, NO SOB OR ANY COMPLAINS, VS WNL, ON RA SAFETY MAINTAIN, ALARM IS ON
--- NOTE | 2019-03-20 19:30 | NUR ---
Received patient awake and alert in bed, A/Ox3, anxious. No signs of acute distress noted. No complaints of chest pain or SOB. Heplock on the left hand is intact and patent. Safety measures initiated. Bed is low and locked, call light within reach. Will continue to monitor.
[2019-03-20 20:20] VITALS: BP 108/53
[2019-03-20] MEDS ORDERED: ONDANSETRON 4 MG/2 ML VIAL IV PRN (21:00)
[2019-03-20] MEDS: TEMAZEPAM 15 MG CAPSULE PO PRN (21:47)
[2019-03-20] MEDS: DOCUSATE SODIUM 100 MG CAPSULE PO SCH (21:48)
[2019-03-21 00:30] VITALS: BP 110/62
[2019-03-21 04:00] VITALS: BP 147/66
[2019-03-21] MEDS: PANTOPRAZOLE SODIUM 40 MG TABLET.DR PO SCH (06:05)
[2019-03-21 06:35] LABS: BASOPHILS % (AUTO) 0.3 % (0.0-2.0); EOSINOPHILS % (AUTO) 0.3 % (0.0-7.0); HEMATOCRIT 34.2 % (31.2-41.9); HEMOGLOBIN 11.4 g/dL (10.9-14.3); LYMPHOCYTES # (AUTO) 13.3 K/uL (20.0-40.0); LYMPHOCYTES % (AUTO) 76.6 % (20.5-51.5); MEAN CORPUSCULAR HGB CONC 33 g/dL (32.3-35.6); MEAN CORPUSCULAR VOLUME 89.9 fL (75.5-95.3); MONOCYTES # (AUTO) 0.4 K/uL (2.0-10.0); MONOCYTES % (AUTO) 2.2 % (0.0-11.0); NEUTROPHILS # (AUTO) 3.6 K/uL (1.8-8.9); NEUTROPHILS % (AUTO) 20.6 % (38.5-71.5); PLATELET COUNT (AUTO) 175 K/uL (179-408); WHITE BLOOD COUNT (AUTO) 17.4 K/uL (3.8-11.8)
[2019-03-21] MEDS: CLONAZEPAM 0.5 MG TABLET PO PRN ×2 (06:35→18:30)
--- NOTE | 2019-03-21 06:53 | NUR ---
Patient slept well after PRN Temazepam was given. Patient ambulated to restroom with steady gait. PRN Klonopin given for anxiety. Patient refused Protonix, explained use and benefits and she still refused. Safety measures given.
[2019-03-21 07:05] LABS: THYROID STIMULATING HORMONE 3.338 mIU/mL (0.358-3.740)
[2019-03-21 07:11] LABS: CARBON DIOXIDE 29 mmol/L (21-32); CHLORIDE 105 mmol/L (98-107); CHOLESTEROL 226 mg/dL (<200); CREATININE 0.8 mg/dL (0.6-1.3); GLUCOSE 91 mg/dL (74-106); HDL CHOLESTEROL 86 mg/dL (40-60); MAGNESIUM 1.8 mg/dL (1.8-2.4); PHOSPHOROUS 3.5 mg/dL (2.5-4.9); POTASSIUM 4.3 mmol/L (3.5-5.1); TRIGLYCERIDES 90 MG/DL (30-150); UREA NITROGEN, BLOOD 22 mg/dL (7-18)
--- NOTE | 2019-03-21 08:00 | NUR ---
Received pt. resting in bed alert oriented x3. IV in L hand 20 gauge intact patent hep lock. Pt. denies SOB/ difficulty breathing. Pt. denies pain or discomfort. Pt on tele monitor sinus rhythm. Safety measures in place. Call light within reach. Will continue to monitor pt.
[2019-03-21 09:03] LABS: EOSINOPHILS % (MANUAL) 1 % (0-8); LYMPHOCYTES % (MANUAL) 77 % (20-40); MONOCYTES % (MANUAL) 3 % (2-10)
[2019-03-21 09:04] LABS: NEUTROPHILS % (MANUAL) 19 % (42-75)
[2019-03-21] MEDS: ESCITALOPRAM OXALATE 10 MG TABLET PO SCH (09:26)
[2019-03-21] MEDS: HYDROCHLOROTHIAZIDE 12.5 MG CAPSULE PO SCH (09:27)
--- NOTE | 2019-03-21 11:39 | NUR ---
11:30am: SW consultation requested. SW met with patient in her room. Patient was lying in her bed, with her eyes closed. SW called out patient's name a couple of times before patient responded. However patient kept her eyes closed and her head turned away from this SW. SW introduced herself and the reason for her visit, but patient's responses were delayed, limited, and her voice was very low. SW tried to generate a conversation, but patient was not engaging and kept her eyes closed. SW asked patient if SW could return later on in the afternoon to see the patient, and patient whispered "yes". SW ended interview at this time, and will follow up later. SCOTT Thorpe informed of above.
[2019-03-21 11:58] VITALS: BP 150/51
--- NOTE | 2019-03-21 13:17 | NUR ---
Pt. is compliant with medications; however, pt. did not have appetite for breakfast or for lunch. Encouraged pt. to eat pt. still refused. Pt. stated she feels weak and states "I want to my life is over can you help me" and asked for my phone number to contact her. Informed charge nurse and contacted vp digital marketing social media and crm. Spoke to son and previous living facility [facility] about medications she has taken prior to admission at [facility] for pharmacy. Safety measures in place. call light within reach. Will continue to monitor pt.
[2019-03-21] MEDS ORDERED: LORA-258 PO (13:38)
[2019-03-21] MEDS ORDERED: MIRALAX 17 GM POWD.PACK PO PRN (14:00)
[2019-03-21] MEDS ORDERED: MAGNESIUM HYDROXIDE 30 ML LIQUID UDC PO PRN (14:00)
[2019-03-21] MEDS ORDERED: ACETAMINOPHEN 325 MG TABLET PO PRN (14:00)
--- NOTE | 2019-03-21 14:51 | NUR ---
SW met with SHELBI Rosales to discuss patient's expressions of "wanting to " (see previous RN note). SW then met with the patient, who was in her bed and observed to be more awake and alert then earlier today when SW tried meeting with the patient (see previous SS note). SW tried to engage in a conversation with the patient, but once again patient expressed not wanting to talk, stating "i don't want to talk about it, don't ask me questions". SW acknowledged patient's wishes, and stated that SW can check in on the patient tomorrow. Patient's affect was flat, her eyes were initially open, but patient once again began closing her eyes towards the end of this meeting with this SW. Patient's tone of voice was low. SW was unable to gather any information to complete a psychosocial assessment, and SW was unable to further assess patient's mood. SW then consulted with SS Director Tiff Colón, and it was agreed that a psychiatric consultation will be ordered. paper products machine operator Nene informed.
[2019-03-21] MEDS ORDERED: ESCI10TA55 PO (15:58)
[2019-03-21] MEDS ORDERED: METO25TA6 PO (15:59)
[2019-03-21] MEDS ORDERED: MULT1TAB73 PO (16:00)
[2019-03-21] MEDS ORDERED: ACET-2154 PO ×2 (16:02→16:03)
[2019-03-21] MEDS ORDERED: MAGN400O6 PO (16:05)
[2019-03-21 16:15] VITALS: BP 119/47
[2019-03-21] MEDS ORDERED: MAG355OR18 PO (17:58)
--- NOTE | 2019-03-21 19:30 | NUR ---
Received patient resting in bed, easily to arouse. Patient refusing vital signs, keeps telling LOG HANDLER "don't touch me" optical goods worker and MD aware of patients mood today, psych consult was ordered. No distress noted. No complaints of pain or SOB. Heplock on the left hand is intact and patent. Safety measures initiated. Bed is low and locked, call light within reach. Will continue to monitor.
--- NOTE | 2019-03-21 19:35 | NUR ---
Pt. spoke to son on phone. pt. appeared to be in a better mood after speaking to son. Dr. Beauchamp saw pt. and stated to give her PRN claudia. Gave pt. PRN claudia. Pt. states she has no thoughts of hurting herself or others. Safety measures in place. call light within reach. Will endorse to PM nurse
--- NOTE | 2019-03-21 19:47 | NUR ---
spoke to living facility [facility] about medications. Facility refused to fax medication as pt. left [facility]a. got medication through phone from nurse at [facility]. Spoke to pharmacist about medications and inputted medication with pharmacist.
[2019-03-21] MEDS ORDERED: METOPROLOL TARTRATE 25 MG TABLET PO SCH (21:00)
[2019-03-21] MEDS: DOCUSATE SODIUM 100 MG CAPSULE PO SCH (21:00)
[2019-03-21] MEDS: ATORVASTATIN 10 MG TABLET PO SCH (21:00)
--- NOTE | 2019-03-21 21:47 | NUR ---
Tried to take patients vitals, but still refused. Tried letting patient express feelings and ask what was wrong because she was in a different mood last night and she just stated "I am sick" I asked what she felt was wrong, but then patient just closed eyes and didn't answer. Offered night time medications and food as it was reported that she was refusing to eat today, but patient refused. Will let charge nurse know. Will continue to monitor.
[2019-03-21] MEDS: TEMAZEPAM 15 MG CAPSULE PO PRN (22:48)
[2019-03-21 22:56] VITALS: BP 143/63
--- NOTE | 2019-03-21 23:34 | NUR ---
Patient is more pleasant. Allowed to me take vitals, requested sleeping pill. Helped to the restroom, patient used walker and walked with a steady gait. offered snacks and patient accepted. She was very thankful. Will continue to monitor.
[2019-03-22] MEDS: PANTOPRAZOLE SODIUM 40 MG TABLET.DR PO SCH (06:29)
[2019-03-22 06:40] VITALS: BP 155/71
[2019-03-22] MEDS: CLONAZEPAM 0.5 MG TABLET PO PRN ×2 (06:52→20:57)
--- NOTE | 2019-03-22 07:00 | NUR ---
Received patient in bed resting and calm, with no s/s of acute distress noted and no s/s of pain noted, IV intact and patent. continue to monitor and call light within reached.
--- NOTE | 2019-03-22 07:15 | NUR ---
Patient started to state that "she does not want to live anymore" Helped reassure patient that we are all here to help. Administer PRN Klonopin. Will endorse to next shift.
[2019-03-22] MEDS ORDERED: MULTIVITAMINS,THERAPEUTIC TABLET PO SCH (09:00)
[2019-03-22] MEDS ORDERED: ESCITALOPRAM OXALATE 10 MG TABLET PO SCH (09:00)
[2019-03-22] MEDS: ESCITALOPRAM OXALATE 10 MG TABLET PO SCH (09:42)
[2019-03-22] MEDS: HYDROCHLOROTHIAZIDE 12.5 MG CAPSULE PO SCH (09:42)
[2019-03-22] MEDS: ACETAMINOPHEN 325 MG TABLET PO PRN (10:04)
--- NOTE | 2019-03-22 11:03 | NUR ---
10:30am: SW met with patient today, since previous attempts to meet with the patient were unsuccessful (see SS notes from yesterday). Patient was alert, lying down in her bed, and was receptive to meeting with this SW. Patient was cooperative and more pleasant today, smiling on and off throughout the interview, and maintaining eye contact with this SW. Patient is a 78 year old female. Patient stated she lives alone at home, but that she understands that she would probably not be able to return home alone because "I need help now". SW explored discharge options with the patient, and patient expressed wanting to go to a "home where there are other seniors". SW explained to the patient that the telecommunications network planner would be working with her and her sons in order to find the best alternative housing option for her, and patient expressed agreement. SW then generated a discussion to gather some psychosocial history on the patient. 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 SW explored patient's relationship with her family and patient stated that her sons live locally and are involved in her life. Patient stated "they are beautiful children", and did not express any concern about their relationship, expressing gratitude that she has their support. SW assessed patient's mood, and patient expressed sleeping well at night but feeling a bit anxious this morning. SW explored patient's feelings of anxiety, but patient was not able to identify a specific reason why she was feeling anxious. SW provided supportive counseling, and reassured her that she was in good hands here at the hospital. Patient expressed "I love all the nurses here, they are all very good, I like them". SW thanked patient for her feedback. SW assessed for s/sx of depression, and SI. No s/sx of depression or SI present at this time. At this time, no additional SS interventions are needed. SW met with SCOTT Parish and updated her on above information. SCOTT Parish to work with patient and family for discharge planning.
[2019-03-22] MEDS: HYDROCODONE/APAP 5-325MG TABLET PO PRN ×3 (11:38→21:55)
[2019-03-22 11:39] VITALS: BP 133/58
[2019-03-22 15:51] VITALS: BP 116/46
[2019-03-22] MEDS: NITROFURANTOIN/NITROFURAN MAC 100 MG CAPSULE PO SCH ×2 (15:56→20:58)
--- NOTE | 2019-03-22 18:34 | NUR ---
PATIENT IN BED WITH NO S/S OF ACUTE DISTRESS NOTED, NO C/O PAIN AT THIS TIME. PATIENT IS IN BED CALM DENIES ANY SI. CONTINUES TO MONITOR. ALL NEEDS ATTENDED. CALL LIGHT WITHIN REACHED.
[2019-03-22 20:21] VITALS: BP 124/66
[2019-03-22] MEDS: TEMAZEPAM 15 MG CAPSULE PO PRN ×2 (20:57→21:55)
[2019-03-22] MEDS: DOCUSATE SODIUM 100 MG CAPSULE PO SCH (20:57)
[2019-03-22] MEDS: ATORVASTATIN 10 MG TABLET PO SCH ×2 (20:57→21:00)
[2019-03-23 05:13] VITALS: BP 130/65
--- NOTE | 2019-03-23 05:28 | NUR ---
patient received lying in bed and watching TV. requested sleeping medication and pain medication due to c/o of pain and insomnia on my shift, but refused it when attempting to administer. Carman and temazepam wasted in Pyxis. patient also refused her Lipitor despite education. v/s stable and no signs of acute distress throughout my shift. safety and comfort measures provided at all times. no suicidal ideations verbalized or observed on my shift. will continue to monitor and endorse accordingly to morning nurse.
[2019-03-23] MEDS: PANTOPRAZOLE SODIUM 40 MG TABLET.DR PO SCH (06:18)
[2019-03-23 07:50] LABS: BASOPHILS % (AUTO) 0.2 % (0.0-2.0); EOSINOPHILS % (AUTO) 0.2 % (0.0-7.0); HEMATOCRIT 34.3 % (31.2-41.9); HEMOGLOBIN 11.3 g/dL (10.9-14.3); LYMPHOCYTES # (AUTO) 12.7 K/uL (20.0-40.0); MEAN CORPUSCULAR HEMOGLOBIN 29.1 uug (24.7-32.8); MEAN CORPUSCULAR HGB CONC 33 g/dL (32.3-35.6); MEAN CORPUSCULAR VOLUME 88.7 fL (75.5-95.3); MONOCYTES # (AUTO) 0.4 K/uL (2.0-10.0); MONOCYTES % (AUTO) 2.4 % (0.0-11.0); NEUTROPHILS # (AUTO) 3.3 K/uL (1.8-8.9); NEUTROPHILS % (AUTO) 20.2 % (38.5-71.5); PLATELET COUNT (AUTO) 155 K/uL (179-408); RED BLOOD CELL COUNT(AUTO) 3.87 MIL/uL (3.63-4.92); WHITE BLOOD COUNT (AUTO) 16.5 K/uL (3.8-11.8)
[2019-03-23 07:52] LABS: CARBON DIOXIDE 30 mmol/L (21-32); CHLORIDE 101 mmol/L (98-107); CREATININE 0.9 mg/dL (0.6-1.3); GLUCOSE 88 mg/dL (74-106); MAGNESIUM 1.8 mg/dL (1.8-2.4); PHOSPHOROUS 3.5 mg/dL (2.5-4.9); POTASSIUM 3.9 mmol/L (3.5-5.1); UREA NITROGEN, BLOOD 17 mg/dL (7-18)
[2019-03-23] MEDS: ACETAMINOPHEN 325 MG TABLET PO PRN (09:01)
[2019-03-23] MEDS: HYDROCHLOROTHIAZIDE 12.5 MG CAPSULE PO SCH (09:02)
[2019-03-23] MEDS: NITROFURANTOIN/NITROFURAN MAC 100 MG CAPSULE PO SCH (09:02)
[2019-03-23] MEDS: ESCITALOPRAM OXALATE 10 MG TABLET PO SCH (09:02)
[2019-03-23 09:03] LABS: LYMPHOCYTES % (MANUAL) 73 % (20-40); NEUTROPHILS % (MANUAL) 24 % (42-75)
[2019-03-23 09:04] LABS: MONOCYTES % (MANUAL) 3 % (2-10)
[2019-03-23] MEDS: CLONAZEPAM 0.5 MG TABLET PO PRN ×2 (09:12→19:23)
[2019-03-23 12:06] VITALS: BP 144/82
[2019-03-23] MEDS ORDERED: CLON0.5T4 PO (15:53)
[2019-03-23] MEDS ORDERED: NITR100C11 PO (15:53)
[2019-03-23] MEDS ORDERED: PANT40TA2 PO (15:53)
[2019-03-23] MEDS ORDERED: TEMA15CA5 PO (15:53)
[2019-03-23] MEDS ORDERED: DOCU100C36 PO (15:53)
[2019-03-23] MEDS ORDERED: ATOR10TA PO (15:53)
[2019-03-23] MEDS ORDERED: ACET325T53 PO (15:53)
[2019-03-23 16:27] VITALS: BP 138/69
--- NOTE | 2019-03-23 18:04 | NUR ---
Patient alert and oriented, guarded. No distress noted. PRN Tylenol given today for headache, resolved. Clonazepam PRN given today for anxiety. Continues on antibiotics for UTI. No complaints of chest pain. Report given to Kirsten at [facility]. IV access removed. Transport ordered for discharge, will endorse remainder of discharge to oncoming shift.
--- NOTE | 2019-03-23 19:52 | NUR ---
patient received in bed and confused. report given to appropriate transferring personnel and discharged to [facility] with belongings and discharge paperwork. no IV in place. ID band off. no signs of acute distress noted at this time. patient discharged in stable condition.
== END 2019-03-23 20:00 | DRG 880 ==
LOC: ER 07:15 → TELE3 09:40 → MEDSURG3 03-21 23:13
PROVIDERS: ADMIT Internal Medicine; ATTEND Internal Medicine
DX: F41.9 Anxiety disorder, unspecified (principal); N39.0 Urinary tract infection, site not specified; C95.10 Chronic leukemia of unspecified cell type not having achieved remission; C91.10 Chronic lymphocytic leukemia of B-cell type not having achieved remission; D68.59 Other primary thrombophilia; I10 Essential (primary) hypertension; F03.90 Unspecified dementia, unspecified severity, without behavioral disturbance, psychotic disturbance, mood disturbance, and anxiety; Z63.9 Problem related to primary support group, unspecified; E78.5 Hyperlipidemia, unspecified; D69.59 Other secondary thrombocytopenia; Z74.09 Other reduced mobility; K59.00 Constipation, unspecified; Z79.899 Other long term (current) drug therapy; Z91.81 History of falling; N28.1 Cyst of kidney, acquired; R53.1 Weakness
CPT/HCPCS: 36415; 70030-TC; 71045; 80307; 83735; 84100; 84443; 85025; 87077; 87086; 93005; A4663; C1758; G0378; G0480; G0480-TC; J0696; J3490

== ENCOUNTER 2019-04-12 13:09 | Inpatient (IN) | payer MEDICARE, MEDICAID ==
[~2019-04-12] VITALS: Ht 157.5 cm; Wt 55.8 kg
[~2019-04-12 13:09] MED LIST changes: +ACET325T53 PO; +ATOR10TA PO; +CLON0.5T12 PO; +DOCU100C36 PO; +ESCI10TA55 PO; +MAG355OR18 PO; +MAGN400O6 PO; +METO25TA6 PO; +MULT1TAB73 PO; +NITR100C11 PO; +PANT40TA2 PO; +TEMA15CA5 PO; -metoprolol tartrate
[2019-04-12 13:31] LABS: BASOPHILS # (AUTO) 0.1 K/uL (0.0-8.0); BASOPHILS % (AUTO) 0.3 % (0.0-2.0); EOSINOPHILS % (AUTO) 0.1 % (0.0-7.0); HEMATOCRIT 34.6 % (31.2-41.9); HEMOGLOBIN 11.1 g/dL (10.9-14.3); LYMPHOCYTES # (AUTO) 16.5 K/uL (20.0-40.0); LYMPHOCYTES % (AUTO) 72.2 % (20.5-51.5); MEAN CORPUSCULAR HEMOGLOBIN 28.5 uug (24.7-32.8); MEAN CORPUSCULAR HGB CONC 32 g/dL (32.3-35.6); MEAN CORPUSCULAR VOLUME 88.6 fL (75.5-95.3); MONOCYTES # (AUTO) 0.5 K/uL (2.0-10.0); MONOCYTES % (AUTO) 2.2 % (0.0-11.0); NEUTROPHILS # (AUTO) 5.7 K/uL (1.8-8.9); NEUTROPHILS % (AUTO) 25.2 % (38.5-71.5); PLATELET COUNT (AUTO) 157 K/uL (179-408); WHITE BLOOD COUNT (AUTO) 22.9 K/uL (3.8-11.8)
[2019-04-12 13:36] LABS: CARBON DIOXIDE 28 mmol/L (21-32); CHLORIDE 105 mmol/L (98-107); CREATININE 0.9 mg/dL (0.6-1.3); GLUCOSE 92 mg/dL (74-106); POTASSIUM 4.1 mmol/L (3.5-5.1); UREA NITROGEN, BLOOD 16 mg/dL (7-18)
[2019-04-12 13:40] LABS: ETHANOL < 3 MG/DL (0-0)
[2019-04-12 13:42] LABS: ALANINE AMINOTRANSFERASE 18 U/L (14-59); ALKALINE PHOSPHATASE 50 U/L (50-136); ASPARTATE AMINOTRANSFERASE 14 U/L (15-37); BILIRUBIN,DIRECT 0.1 mg/dL (0.0-0.2); BILIRUBIN,TOTAL 0.3 mg/dL (0.2-1.0); TOTAL PROTEIN, SERUM 6.5 g/dL (6.4-8.2)
[2019-04-12 13:43] LABS: *BILIRUBIN,URIN NEGATIVE (NEGATIVE); *BLOOD, URINE 1+ (NEGATIVE); *CLARITY,URINE SLIGHTLY CLOUDY (CLEAR); *COLOR,URINE YELLOW (YELLOW); *KETONES,URINE NEGATIVE (NEGATIVE); *UROBILINOGEN,URINE 0.2 E.U./dl (NORMAL); LEUKOCYTE ESTERASE ,URINE 2+ (NEGATIVE); NITRITE, URINE POSITIVE (NEGATIVE); PH,URINE 5.5 (5.0-8.0); UGLUCOSE NEGATIVE (NEGATIVE)
[2019-04-12] MEDS ORDERED: LORAZEPAM 0.5 MG TABLET ONE (13:44)
[2019-04-12] MEDS ORDERED: LORAZEPAM 0.5 MG TABLET PO ONE (13:45)
[2019-04-12 13:50] LABS: LYMPHOCYTES % (MANUAL) 67 % (20-40); MONOCYTES % (MANUAL) 2 % (2-10); NEUTROPHILS % (MANUAL) 28 % (42-75); REACTIVE LYMPHOCYTES 3 % (0-0)
[2019-04-12 13:53] LABS: BACTERIA,URINE MANY /HPF (NONE SEEN); RBC,URINE 0-3 /HPF (0-3); SQUAMOUS EPITHELIAL CELL,UR FEW /HPF (NONE SEEN)
[2019-04-12 13:57] LABS: *AMPHETAMINE, URINE NEGATIVE (NEGATIVE); *BARBITURATE, URINE POSITIVE (NEGATIVE); *CANNABINOID, URINE NEGATIVE (NEGATIVE); *COCCAINE, URINE NEGATIVE (NEGATIVE); *OPIATE, URINE NEGATIVE (NEGATIVE); *PHENCYCLIDINE SCREEN,URINE NEGATIVE (NEGATIVE)
[2019-04-12 14:06] LABS: THYROID STIMULATING HORMONE 2.036 mIU/mL (0.358-3.740)
[2019-04-12] MEDS ORDERED: CEFTRIAXONE 1 G in IV DEXTROSE 5% 50 ML IV ONE (14:15)
[2019-04-12] MEDS ORDERED: CEFTRIAXONE 1 G VIAL ONE (14:29)
[2019-04-12] MEDS ORDERED: ACETAMINOPHEN 325 MG TABLET PO PRN (16:00)
[2019-04-12] MEDS ORDERED: MAG HYDROX/AL HYDROX/SIMETH 30 ML LIQUID UDC PO PRN (16:00)
[2019-04-12] MEDS ORDERED: MAGNESIUM HYDROXIDE 30 ML LIQUID UDC PO PRN (16:00)
[2019-04-12 17:29] VITALS: BP 102/60
[2019-04-12 20:00] VITALS: BP 112/65
[2019-04-12] MEDS ORDERED: LORAZEPAM 1 MG TABLET PO PRN (20:00)
[2019-04-12] MEDS: DOCUSATE SODIUM 100 MG CAPSULE PO SCH (20:27)
[2019-04-12] MEDS: ATORVASTATIN 10 MG TABLET PO SCH (20:27)
[2019-04-12] MEDS: TEMAZEPAM 7.5 MG CAPSULE PO PRN (21:43)
[2019-04-13] MEDS: PANTOPRAZOLE SODIUM 40 MG TABLET.DR PO SCH (06:11)
[2019-04-13] MEDS ORDERED: Medication Not On Formulary EA (Multivitamins (Multivitamin) 1 EACH) PO SCH (09:00)
[2019-04-13] MEDS: ESCITALOPRAM OXALATE 10 MG TABLET PO SCH (09:13)
[2019-04-13] MEDS: LORAZEPAM 1 MG TABLET PO PRN (09:20)
[2019-04-13 11:58] VITALS: BP 156/72
[2019-04-13 12:00] VITALS: BP 147/87
[2019-04-13 20:00] VITALS: BP 104/54
[2019-04-13] MEDS: DOCUSATE SODIUM 100 MG CAPSULE PO SCH (20:34)
[2019-04-13] MEDS: ATORVASTATIN 10 MG TABLET PO SCH (20:40)
[2019-04-13] MEDS: TEMAZEPAM 7.5 MG CAPSULE PO PRN (21:55)
[2019-04-14] MEDS: LORAZEPAM 1 MG TABLET PO PRN ×3 (02:17→21:32)
[2019-04-14] MEDS: PANTOPRAZOLE SODIUM 40 MG TABLET.DR PO SCH (06:16)
[2019-04-14 08:00] VITALS: BP 161/78
[2019-04-14] MEDS: ESCITALOPRAM OXALATE 10 MG TABLET PO SCH (09:49)
[2019-04-14 15:10] VITALS: BP 137/69
[2019-04-14] MEDS: ATORVASTATIN 10 MG TABLET PO SCH (20:09)
[2019-04-14] MEDS: DOCUSATE SODIUM 100 MG CAPSULE PO SCH (20:57)
[2019-04-14] MEDS: TEMAZEPAM 7.5 MG CAPSULE PO PRN (21:01)
[2019-04-15] MEDS: PANTOPRAZOLE SODIUM 40 MG TABLET.DR PO SCH (06:17)
[2019-04-15] MEDS: ESCITALOPRAM OXALATE 10 MG TABLET PO SCH (09:31)
[2019-04-15 12:12] VITALS: BP 105/57
[2019-04-15] MEDS: CEphaleXIN 500 MG CAPSULE PO SCH ×2 (14:00→15:10)
[2019-04-15 16:15] VITALS: BP 134/58
[2019-04-15] MEDS ORDERED: METOPROLOL TARTRATE 25 MG TABLET PO SCH (21:00)
== END 2019-04-15 17:00 | disposition left against medical advice (07) | DRG 885 ==
LOC: ER 13:09 → GPSOV3 15:49 → GPS 04-14 10:15 → MEDSURG3 04-14 10:22 → GPSOV3 04-14 11:43
PROVIDERS: ADMIT Psychiatry & Neurology Psychiatry; ATTEND Internal Medicine
DX: F33.2 Major depressive disorder, recurrent severe without psychotic features (principal); I11.0 Hypertensive heart disease with heart failure; N39.0 Urinary tract infection, site not specified; C95.10 Chronic leukemia of unspecified cell type not having achieved remission; G93.40 Encephalopathy, unspecified; I50.9 Heart failure, unspecified; F41.9 Anxiety disorder, unspecified; K21.9 Gastro-esophageal reflux disease without esophagitis; F03.90 Unspecified dementia, unspecified severity, without behavioral disturbance, psychotic disturbance, mood disturbance, and anxiety; Z79.899 Other long term (current) drug therapy; I73.9 Peripheral vascular disease, unspecified
CPT/HCPCS: 36415; 70030-TC; 71045; 80307; 84443; 85025; 87086; 93005; A4663; G0480; J0696; J7060

== ENCOUNTER 2019-04-16 15:09 | Inpatient (IN) | payer MEDICARE, MEDICAID ==
[~2019-04-16] VITALS: Ht 157.5 cm; Wt 52.2 kg
[~2019-04-16 15:09] MED LIST changes: -CLON0.5T12 PO; -ESCI10TA55 PO; -MAG355OR18 PO; -MAGN400O6 PO; -NITR100C11 PO; -TEMA15CA5 PO
--- NOTE | 2019-04-16 15:15 | NUR ---
Admit a 78 yo female rescue via ambulance from home. C/O burning sensation inside her vaginal area. Place pt on monitor. Awake and orientedx3. Appears to be anxious. O2 sat is 100% on RA.
--- NOTE | 2019-04-16 15:30 | NUR ---
Seen and examined by Dr Callahan with new orders.
[2019-04-16 15:52] LABS: BASOPHILS % (AUTO) 0.2 % (0.0-2.0); EOSINOPHILS % (AUTO) 0.1 % (0.0-7.0); HEMATOCRIT 30.4 % (31.2-41.9); HEMOGLOBIN 9.8 g/dL (10.9-14.3); LYMPHOCYTES # (AUTO) 11.4 K/uL (20.0-40.0); LYMPHOCYTES % (AUTO) 72.4 % (20.5-51.5); MEAN CORPUSCULAR HEMOGLOBIN 28.4 uug (24.7-32.8); MEAN CORPUSCULAR HGB CONC 32 g/dL (32.3-35.6); MEAN CORPUSCULAR VOLUME 88.3 fL (75.5-95.3); MONOCYTES # (AUTO) 0.4 K/uL (2.0-10.0); MONOCYTES % (AUTO) 2.5 % (0.0-11.0); NEUTROPHILS # (AUTO) 3.9 K/uL (1.8-8.9); NEUTROPHILS % (AUTO) 24.8 % (38.5-71.5); PLATELET COUNT (AUTO) 146 K/uL (179-408); RED BLOOD CELL COUNT(AUTO) 3.44 MIL/uL (3.63-4.92); WHITE BLOOD COUNT (AUTO) 15.7 K/uL (3.8-11.8)
[2019-04-16 15:57] LABS: CREATININE 0.7 mg/dL (0.6-1.3); POTASSIUM 4.1 mmol/L (3.5-5.1)
[2019-04-16 16:03] LABS: BILIRUBIN,DIRECT 0.1 mg/dL (0.0-0.2); BILIRUBIN,TOTAL 0.4 mg/dL (0.2-1.0); TOTAL PROTEIN, SERUM 6.1 g/dL (6.4-8.2)
[2019-04-16 16:25] LABS: LYMPHOCYTES % (MANUAL) 68 % (20-40); MONOCYTES % (MANUAL) 4 % (2-10); NEUTROPHILS % (MANUAL) 28 % (42-75)
--- NOTE | 2019-04-16 16:30 | NUR ---
CT scan abdomen and pelvis done without contrast.
--- NOTE | 2019-04-16 16:45 | NUR ---
UA and C&S sent to lab as ordered
[2019-04-16 16:53] LABS: *BILIRUBIN,URIN NEGATIVE (NEGATIVE); *BLOOD, URINE 1+ (NEGATIVE); *CLARITY,URINE SLIGHTLY CLOUDY (CLEAR); *COLOR,URINE YELLOW (YELLOW); *KETONES,URINE NEGATIVE (NEGATIVE); *UROBILINOGEN,URINE 0.2 E.U./dl (NORMAL); LEUKOCYTE ESTERASE ,URINE 2+ (NEGATIVE); NITRITE, URINE POSITIVE (NEGATIVE); UGLUCOSE NEGATIVE (NEGATIVE)
[2019-04-16] MEDS ORDERED: PHENAZOPYRIDINE HCL 100 MG TABLET PO ONE (17:15)
[2019-04-16] MEDS ORDERED: PHENAZOPYRIDINE HCL 100 MG TABLET ONE (17:17)
[2019-04-16 17:19] LABS: BACTERIA,URINE MANY /HPF (NONE SEEN); RBC,URINE 0-3 /HPF (0-3); SQUAMOUS EPITHELIAL CELL,UR FEW /HPF (NONE SEEN)
[2019-04-16] MEDS ORDERED: CEphaleXIN 500 MG CAPSULE PO ONE (17:45)
[2019-04-16] MEDS ORDERED: CEphaleXIN 500 MG CAPSULE ONE (17:50)
--- NOTE | 2019-04-16 18:20 | NUR ---
Dr Callahan did vaginal and rectal exam at the bedside. No bleeding noted.
--- NOTE | 2019-04-16 18:30 | NUR ---
[facility] provided for pt. pt eating with good apetite.
--- NOTE | 2019-04-16 18:33 | NUR ---
Pt is going to be admitted in Medsurg unit. Dr Hay is aware of admission and spoken by Dr Callahan.
--- NOTE | 2019-04-16 18:34 | NUR ---
Awaiting for a bed assignment at this time.
--- NOTE | 2019-04-16 18:35 | NUR ---
pt walking around er and asking some thing to help her go to sleep. md notified.
--- NOTE | 2019-04-16 18:50 | NUR ---
Report given to Georgette TIERNEY.
[2019-04-16] MEDS ORDERED: ACETAMINOPHEN ES 500 MG TABLET ONE (19:10)
[2019-04-16] MEDS ORDERED: LORAZEPAM 1 MG TABLET ONE (19:10)
[2019-04-16] MEDS ORDERED: LORAZEPAM 2 MG/1 ML VIAL IV ONE (19:15)
[2019-04-16] MEDS ORDERED: ACETAMINOPHEN ES 500 MG TABLET PO PRN (19:15)
[2019-04-16] MEDS ORDERED: ACETAMINOPHEN 325 MG TABLET PO PRN ×2 (19:30)
[2019-04-16] MEDS ORDERED: MAGNESIUM HYDROXIDE 30 ML LIQUID UDC PO PRN (19:30)
[2019-04-16] MEDS ORDERED: Z GUARD REMEDY PASTE 57 GM TUBE TOP PRN (19:30)
[2019-04-16] MEDS ORDERED: ONDANSETRON 4 MG/2 ML VIAL IV PRN (19:30)
[2019-04-16] MEDS ORDERED: HYDROCODONE/APAP 5-325MG TABLET PO PRN (19:30)
--- NOTE | 2019-04-16 19:31 | NUR ---
pt transfered to floor in stable condition.
[2019-04-16 20:00] VITALS: BP 102/63
[2019-04-16] MEDS ORDERED: CEFTRIAXONE 500 MG in IV DEXTROSE 5% 50 ML IV SCH (20:00)
[2019-04-16] MEDS: METOPROLOL TARTRATE 25 MG TABLET PO SCH (20:55)
[2019-04-16] MEDS ORDERED: TEMAZEPAM 15 MG CAPSULE PO PRN (21:00)
[2019-04-16] MEDS: DOCUSATE SODIUM 100 MG CAPSULE PO SCH (21:00)
[2019-04-16] MEDS: ATORVASTATIN 10 MG TABLET PO SCH (21:00)
[2019-04-16] MEDS: CEFTRIAXONE 1 G in IV DEXTROSE 5% 50 ML IV SCH (21:56)
[2019-04-16] MEDS: PHENAZOPYRIDINE HCL 100 MG TABLET PO SCH (22:24)
[2019-04-17] MEDS: PANTOPRAZOLE SODIUM 40 MG TABLET.DR PO SCH (06:44)
[2019-04-17] MEDS: PHENAZOPYRIDINE HCL 100 MG TABLET PO SCH ×3 (06:45→21:16)
[2019-04-17 06:47] LABS: BASOPHILS % (AUTO) 0.1 % (0.0-2.0); EOSINOPHILS % (AUTO) 0.2 % (0.0-7.0); HEMATOCRIT 31.7 % (31.2-41.9); HEMOGLOBIN 10.7 g/dL (10.9-14.3); LYMPHOCYTES # (AUTO) 11.9 K/uL (20.0-40.0); LYMPHOCYTES % (AUTO) 78.7 % (20.5-51.5); MEAN CORPUSCULAR HEMOGLOBIN 29.6 uug (24.7-32.8); MEAN CORPUSCULAR HGB CONC 34 g/dL (32.3-35.6); MEAN CORPUSCULAR VOLUME 87.9 fL (75.5-95.3); MONOCYTES # (AUTO) 0.4 K/uL (2.0-10.0); MONOCYTES % (AUTO) 2.5 % (0.0-11.0); NEUTROPHILS # (AUTO) 2.8 K/uL (1.8-8.9); NEUTROPHILS % (AUTO) 18.5 % (38.5-71.5); PLATELET COUNT (AUTO) 141 K/uL (179-408); RED BLOOD CELL COUNT(AUTO) 3.61 MIL/uL (3.63-4.92); WHITE BLOOD COUNT (AUTO) 15.1 K/uL (3.8-11.8)
[2019-04-17 06:48] LABS: CARBON DIOXIDE 29 mmol/L (21-32); CHLORIDE 105 mmol/L (98-107); CREATININE 0.8 mg/dL (0.6-1.3); GLUCOSE 94 mg/dL (74-106); PHOSPHOROUS 3.4 mg/dL (2.5-4.9); UREA NITROGEN, BLOOD 14 mg/dL (7-18)
[2019-04-17 07:13] VITALS: BP 104/65
[2019-04-17 07:22] LABS: NUCLEATED RED BLOOD CELLS 0.7 /100WBC
[2019-04-17 07:33] LABS: BAND % (MANUAL) 2 % (0-10); LYMPHOCYTES % (MANUAL) 77 % (20-40); MONOCYTES % (MANUAL) 5 % (2-10); NEUTROPHILS % (MANUAL) 16 % (42-75)
[2019-04-17] MEDS: ESCITALOPRAM OXALATE 10 MG TABLET PO SCH (08:54)
[2019-04-17] MEDS: MULTIVITAMINS,THERAPEUTIC TABLET PO SCH (08:55)
[2019-04-17] MEDS: METOPROLOL TARTRATE 25 MG TABLET PO SCH ×2 (08:55→21:16)
[2019-04-17] MEDS ORDERED: Medication Not On Formulary EA (Multivitamins (Multivitamin) 1 EACH) PO SCH (09:00)
--- NOTE | 2019-04-17 09:17 | NUR ---
Received pt. alert oriented x4 resting in bed. IV in R AC 20 gauge intact patent saline lock. Pt. denies pain or discomfort. Pt. states she feels good. Pt. ate breakfast and took morning medication; however, pt. refused to take BP medication lopressor. BP 141/67 HR 69. Educated pt. on risks and benefits of taking medication. pt. still refused medication. Pt. denies SI/ HI. Dr. Stoner spoke to pt. at bedside. Will continue to monitor pt. Safety measures in place. Call light within reach.
[2019-04-17 12:00] VITALS: BP 138/67
[2019-04-17] MEDS ORDERED: IV NS 1000 ML 1,000 ML IV ONE (12:30)
[2019-04-17] MEDS ORDERED: ZOLPIDEM 5 MG TABLET PO PRN (12:30)
[2019-04-17] MEDS: LORAZEPAM 0.5 MG TABLET PO PRN (13:50)
[2019-04-17 16:00] VITALS: BP 143/79
--- NOTE | 2019-04-17 18:50 | NUR ---
Pt. resting in bed with sitter at bedside. pt. on 5150 hold for GD. Pt. has iv in R ac 20 gauge intact patent running fluid at 100 mls/ hr. Pt. denies pain/ discomfort. Pt.denies sob / difficulty breathing. pt. denies SI / HI. safety measures in place. call light within reach. will continue to monitor pt.
--- NOTE | 2019-04-17 19:30 | NUR ---
Received patient in bed asleep but arousable. No complaints of pain at this time. Cont w/ 1:1 sitter for safety. No episode of agitation at this time. Safety measures observed. Will cont to monitor
[2019-04-17 20:00] VITALS: BP 155/62
[2019-04-17] MEDS: DOCUSATE SODIUM 100 MG CAPSULE PO SCH (21:13)
[2019-04-17] MEDS: CEFTRIAXONE 1 G in IV DEXTROSE 5% 50 ML IV SCH (21:13)
[2019-04-17] MEDS: risperiDONE 0.25 MG TABLET PO SCH (21:13)
[2019-04-17] MEDS: ATORVASTATIN 10 MG TABLET PO SCH (21:13)
[2019-04-17] MEDS: HEPARIN SODIUM,PORCINE 5,000 UNITS/ML VIAL SQ SCH (21:15)
[2019-04-18] MEDS: PHENAZOPYRIDINE HCL 100 MG TABLET PO SCH ×2 (05:33→14:52)
[2019-04-18 05:56] VITALS: BP 136/63
[2019-04-18] MEDS: PANTOPRAZOLE SODIUM 40 MG TABLET.DR PO SCH (06:31)
--- NOTE | 2019-04-18 07:26 | NUR ---
Patient slept for 7 hours and 15 mins. No episode of aggression. Cont on 1:1 sitter for safety. Refused her Pyridiuma and Protonix, explained risks and benefits. All needs attended. Will endorse accordingly
[2019-04-18] MEDS: HEPARIN SODIUM,PORCINE 5,000 UNITS/ML VIAL SQ SCH ×2 (09:00→21:00)
[2019-04-18] MEDS: MULTIVITAMINS,THERAPEUTIC TABLET PO SCH (09:00)
[2019-04-18] MEDS: ESCITALOPRAM OXALATE 10 MG TABLET PO SCH (09:01)
[2019-04-18] MEDS: METOPROLOL TARTRATE 25 MG TABLET PO SCH ×2 (09:02→21:00)
--- NOTE | 2019-04-18 09:15 | NUR ---
Patient resting in bed with no signs of distress; patient with 1:1 sitter will continue to monitor
[2019-04-18 10:22] VITALS: BP 120/57
[2019-04-18] MEDS: LORAZEPAM 0.5 MG TABLET PO PRN ×2 (13:46→20:33)
--- NOTE | 2019-04-18 18:56 | NUR ---
Patient midly anxious through out shift; patient was 1:1 sitter; patient was redirected multiple times to room ; patient with stable vital signs ;patient hypersexual at times ; Report will be given to oncoming nurse.
--- NOTE | 2019-04-18 19:30 | NUR ---
Patient received in bed awake, A&Ox2. cont w/ 1:1 sitter for safety. Safety measures observed.
[2019-04-18] MEDS: risperiDONE 0.25 MG TABLET PO SCH (20:32)
[2019-04-18] MEDS: CEFTRIAXONE 1 G in IV DEXTROSE 5% 50 ML IV SCH ×2 (20:32→21:00)
[2019-04-18] MEDS: DOCUSATE SODIUM 100 MG CAPSULE PO SCH ×2 (20:32→21:00)
[2019-04-18] MEDS: ATORVASTATIN 10 MG TABLET PO SCH ×2 (20:32→21:00)
[2019-04-18] MEDS ORDERED: LORAZEPAM 2 MG/1 ML VIAL IM ONE (22:15)
--- NOTE | 2019-04-18 22:40 | NUR ---
Patient noted severely agitated refusing her PO meds and IV ATB and stating "I don't need it". Patient wanted to pull her IV out. Redirected patient but ineffective. N.o from Dr. Stoner for Ativan 1mg IM x one time dose given. Will cont to monitor
--- NOTE | 2019-04-19 00:30 | NUR ---
Patient sleeping at this time in her bed. No A/R to Ativan IM. Will cont to monitor
--- NOTE | 2019-04-19 06:40 | NUR ---
Patient slept for 6 hours. Patient refused her Protonix and blood draw this AM. Explained risks and benefits. Will endorse accordingly
[2019-04-19] MEDS: PANTOPRAZOLE SODIUM 40 MG TABLET.DR PO SCH (06:41)
--- NOTE | 2019-04-19 07:30 | NUR ---
Patient calm and comfortable resting in bed with no signs of distress ;Patient with 1:1 sitter due to patient will continue to be monitored.
[2019-04-19] MEDS ORDERED: MEROPENEM 1 G in IV NORMAL SALINE 100 ML IV SCH ×2 (08:30→14:00)
[2019-04-19] MEDS: METOPROLOL TARTRATE 25 MG TABLET PO SCH (09:00)
[2019-04-19] MEDS: HEPARIN SODIUM,PORCINE 5,000 UNITS/ML VIAL SQ SCH (09:00)
[2019-04-19] MEDS: MULTIVITAMINS,THERAPEUTIC TABLET PO SCH (09:00)
[2019-04-19] MEDS: ESCITALOPRAM OXALATE 10 MG TABLET PO SCH (09:23)
[2019-04-19] MEDS: LORAZEPAM 0.5 MG TABLET PO PRN (09:23)
[2019-04-19] MEDS ORDERED: NITROFURANTOIN/NITROFURAN MAC 100 MG CAPSULE PO SCH (09:30)
[2019-04-19 11:06] VITALS: BP 114/72
[2019-04-19] MEDS ORDERED: NITR100C11 PO (11:26)
[2019-04-19 11:45] VITALS: BP 146/54
--- NOTE | 2019-04-19 16:44 | NUR ---
Patient discharged to [facility] for continuing of care; patient stable with no signs of distress; patient with 1:1 sitter patient will continue to be monitored.
[2019-04-19] MEDS ORDERED: LORA-258 PO (18:13)
[2019-04-19] MEDS ORDERED: HYDR-3326 PO (18:13)
[2019-04-19] MEDS ORDERED: HEPA500034 SUBCUT (18:13)
[2019-04-19] MEDS ORDERED: TEMA15CA PO (18:13)
[2019-04-19] MEDS ORDERED: ZINC113P3 TP (18:13)
[2019-04-19] MEDS ORDERED: MAGN400O6 PO (18:13)
[2019-04-19] MEDS ORDERED: RISP0.253 PO (18:13)
[2019-04-19] MEDS ORDERED: ONDA4TAB5 PO (18:13)
[2019-04-19] MEDS ORDERED: ESCI10TA PO (18:13)
[2019-04-19] MEDS ORDERED: ACET-637 PO (18:13)
== END 2019-04-19 17:00 | DRG 689 ==
LOC: ER 15:09 → MEDSURG3 18:57
PROVIDERS: ADMIT Internal Medicine; ATTEND Internal Medicine
DX: N30.01 Acute cystitis with hematuria (principal); G93.41 Metabolic encephalopathy; F33.3 Major depressive disorder, recurrent, severe with psychotic symptoms; Z16.12 Extended spectrum beta lactamase (ESBL) resistance; C91.10 Chronic lymphocytic leukemia of B-cell type not having achieved remission; D64.9 Anemia, unspecified; B96.20 Unspecified Escherichia coli [E. coli] as the cause of diseases classified elsewhere; D69.6 Thrombocytopenia, unspecified; G47.00 Insomnia, unspecified; N20.0 Calculus of kidney; K21.9 Gastro-esophageal reflux disease without esophagitis; K44.9 Diaphragmatic hernia without obstruction or gangrene; I70.0 Atherosclerosis of aorta; Z79.899 Other long term (current) drug therapy; I11.0 Hypertensive heart disease with heart failure; F41.9 Anxiety disorder, unspecified; I50.9 Heart failure, unspecified; E11.51 Type 2 diabetes mellitus with diabetic peripheral angiopathy without gangrene; F03.90 Unspecified dementia, unspecified severity, without behavioral disturbance, psychotic disturbance, mood disturbance, and anxiety
CPT/HCPCS: 36415; 70030-TC; 71045; 83735; 84100; 85025; 87077; 87086; 93005; A4663; A9150; G0378; J0696; J1644; J2060; J2185; J3490; J7030; J7050; J7060

== ENCOUNTER 2019-04-19 17:18 | Inpatient (IN) | payer MEDICARE, MEDICAID ==
[~2019-04-19] VITALS: Ht 157.5 cm; Wt 49.9 kg
[~2019-04-19 17:18] MED LIST changes: +NITR100C11 PO
[2019-04-19] MEDS ORDERED: MAGNESIUM HYDROXIDE 30 ML LIQUID UDC PO PRN (17:45)
[2019-04-19] MEDS ORDERED: BLOOD SUGAR DIAGNOSTIC 1 EACH STRIP VI ONE (17:45)
[2019-04-19] MEDS ORDERED: MAG HYDROX/AL HYDROX/SIMETH 30 ML LIQUID UDC PO PRN (17:45)
[2019-04-19] MEDS ORDERED: LORA-258 PO (18:13)
[2019-04-19] MEDS ORDERED: MAGN400O6 PO (18:13)
[2019-04-19] MEDS ORDERED: ACET-637 PO (18:13)
[2019-04-19] MEDS ORDERED: TEMA15CA PO (18:13)
[2019-04-19] MEDS ORDERED: ESCI10TA PO (18:13)
[2019-04-19] MEDS ORDERED: HEPA500034 SUBCUT (18:13)
[2019-04-19] MEDS ORDERED: HYDR-3326 PO (18:13)
[2019-04-19] MEDS ORDERED: ONDA4TAB5 PO (18:13)
[2019-04-19] MEDS ORDERED: RISP0.253 PO (18:13)
[2019-04-19] MEDS ORDERED: ZINC113P3 TP (18:13)
--- NOTE | 2019-04-19 19:57 | NUR ---
Patient readmitted into [facility] ; admission assisted by [facility] RN with admission; patient has slept through off and on through out shift. Patient with 1:1 sitter. Report given to oncoming nurse.
--- NOTE | 2019-04-19 20:00 | NUR ---
pt with sitter at bedside remains confused and refusing treatments.denies pain or discomfort
[2019-04-19] MEDS: TEMAZEPAM 7.5 MG CAPSULE PO PRN (21:31)
--- NOTE | 2019-04-19 22:00 | NUR ---
pt awake take med ok refuse accucheck
--- NOTE | 2019-04-20 | NUR ---
pt with sitter at bedside repositioned made comfortable
--- NOTE | 2019-04-20 02:01 | NUR ---
pt with sitter at bedside remains confused and refusing treatments.denies pain or discomfort
--- NOTE | 2019-04-20 04:00 | NUR ---
pt asleep at this time.
--- NOTE | 2019-04-20 06:00 | NUR ---
pt became anxious and restless ,pt calmed and comforted given a warm blanket now resting in no distress at this time
--- NOTE | 2019-04-20 07:30 | NUR ---
Received patient in Bed, awake and verbally responsive. No signs of Distress noted. No SOB. No complain of Pain or discomfort. No Suicidal ideation noted. On 1:1 sitter for safety. Remains on Contact Isolation for ESBL urine, Proper PPE strictly Observed. All needs attended and met. Will continue to monitor.
[2019-04-20] MEDS: CLONAZEPAM 0.5 MG TABLET PO PRN ×3 (08:01→18:07)
[2019-04-20] MEDS: ACETAMINOPHEN 325 MG TABLET PO PRN ×2 (08:02→14:07)
[2019-04-20] MEDS ORDERED: HYDROCODONE/APAP 5-325MG TABLET PO PRN (15:15)
[2019-04-20] MEDS ORDERED: ONDANSETRON HCL 4 MG TABLET PO PRN (15:15)
[2019-04-20 16:17] LABS: BASOPHILS % (AUTO) 0.2 % (0.0-2.0); EOSINOPHILS # (AUTO) 0.1 K/uL (0.0-0.7); EOSINOPHILS % (AUTO) 0.4 % (0.0-7.0); HEMOGLOBIN 9.9 g/dL (10.9-14.3); LYMPHOCYTES % (AUTO) 72.3 % (20.5-51.5); MEAN CORPUSCULAR HEMOGLOBIN 28.1 uug (24.7-32.8); MEAN CORPUSCULAR HGB CONC 32 g/dL (32.3-35.6); MEAN CORPUSCULAR VOLUME 87.9 fL (75.5-95.3); MONOCYTES # (AUTO) 0.5 K/uL (2.0-10.0); MONOCYTES % (AUTO) 3.3 % (0.0-11.0); NEUTROPHILS # (AUTO) 3.6 K/uL (1.8-8.9); NEUTROPHILS % (AUTO) 23.8 % (38.5-71.5); PLATELET COUNT (AUTO) 151 K/uL (179-408); RED BLOOD CELL COUNT(AUTO) 3.53 MIL/uL (3.63-4.92); WHITE BLOOD COUNT (AUTO) 15.2 K/uL (3.8-11.8)
[2019-04-20 16:35] LABS: CREATININE 0.9 mg/dL (0.6-1.3); POTASSIUM 4.3 mmol/L (3.5-5.1)
[2019-04-20 17:00] LABS: BAND % (MANUAL) 1 % (0-10); LYMPHOCYTES % (MANUAL) 71 % (20-40); MONOCYTES % (MANUAL) 3 % (2-10); NEUTROPHILS % (MANUAL) 25 % (42-75)
--- NOTE | 2019-04-20 17:36 | NUR ---
KARYN spoke with pts next of kin, her son Jousé Lam; [phone],who states that the family believes that pt is no longer able to care for herself and he does not feel it is safe for her to live on her own anymore. Family would like to explore placement options for pt. KARYN will work with pt, pts family, and MD regarding a safe and proper discharge.
--- NOTE | 2019-04-20 17:36 | NUR ---
Initial discharge plan: Pt currently lives alone in her apartment unit located at [address] [place] [address]. [address], in [facility], [address]; [phone] and would like to return home. However, KARYN spoke with pts next of kin, her son Josué Lam; [phone],who states that the family believes that pt is no longer able to care for herself and live on her own anymore. Family would like to explore placement option for pt. KARYN will work with pt, pts family, and MD regarding a safe and proper discharge.
--- NOTE | 2019-04-20 18:50 | NUR ---
Patient in Bed, awake and verbally responsive. No signs of Distress noted. On 14 day HOLD as ordered. Patient has episode of Anxiety, Klonopin given as ordered. Remains on 1:1 sitter for safety. No Suicidal Ideation. All due medications given as ordered. Will Endorse to Oncoming Nurse.
--- NOTE | 2019-04-20 20:00 | NUR ---
PATIENT AWAKE, TRYING TO LEAVE ROOM. EDUCATED THAT SHE IS ON ISOLATION FOR ESBL, URINE. PASSIVE. SITTER AT BEDSIDE FOR SAFETY. PATIENT REFUSED FOR HS VITALS. DENIES PAIN. PROVIDED SAFE AND THERAPEUTIC ENVIRONMENT. WILL CONTINUE TO MONITOR. ALL NEEDS ATTENDED.
--- NOTE | 2019-04-20 20:45 | NUR ---
PATIENT INFORMED THAT SHE HAS HS MEDICATIONS TO TAKE. EXPLAINED WHAT MEDS ARE TO BE ADMINISTERED. PATIENT REFUSED TO TAKE ANY MEDS. WATER/WASTEWATER ENGINEER NOTIFIED. WILL CONTINUE TO MONITOR AND ASSESS.
[2019-04-20] MEDS: DOCUSATE SODIUM 100 MG CAPSULE PO SCH (20:59)
[2019-04-20] MEDS: NITROFURANTOIN/NITROFURAN MAC 100 MG CAPSULE PO SCH (21:00)
[2019-04-20] MEDS: HEPARIN SODIUM,PORCINE 5,000 UNITS/ML VIAL SQ SCH (21:00)
[2019-04-20] MEDS: METOPROLOL TARTRATE 25 MG TABLET PO SCH (21:00)
[2019-04-20] MEDS ORDERED: Medication Not On Formulary EA (Heparin Sodium,Porcine (Heparin Sodium) 5,000 UNIT) SUBCUT SCH (21:00)
[2019-04-20] MEDS: risperiDONE 0.25 MG TABLET PO SCH (21:00)
[2019-04-20] MEDS: ATORVASTATIN 10 MG TABLET PO SCH (21:00)
--- NOTE | 2019-04-21 04:22 | NUR ---
received report from night nurse.
[2019-04-21] MEDS: PANTOPRAZOLE SODIUM 40 MG TABLET.DR PO SCH (06:39)
--- NOTE | 2019-04-21 06:40 | NUR ---
patient refused protonix this morning despite education. returned to [facility].
--- NOTE | 2019-04-21 08:01 | NUR ---
RECEIVED PT RESTING COMFORTABLY IN BED. PT DENIES PAIN AT THIS TIME. PT HAS A 1:1 SITTER AT BEDSIDE FOR SAFETY. SAFETY MEASURES IMPLEMENTED. PT WILL NOT ANSWER QUESTIONS REGARDING SUICIDAL IDEATION AT THIS TIME. CALL LIGHT WITHIN REACH. BED LOCKED IN LOW POSITION. WILL CONTINUE TO MONITOR.
[2019-04-21 08:02] VITALS: BP 152/61
[2019-04-21] MEDS: HEPARIN SODIUM,PORCINE 5,000 UNITS/ML VIAL SQ SCH ×2 (09:00→20:39)
[2019-04-21] MEDS: MULTIVITAMINS,THERAPEUTIC TABLET PO SCH (09:00)
[2019-04-21] MEDS: METOPROLOL TARTRATE 25 MG TABLET PO SCH ×2 (09:00→20:25)
[2019-04-21] MEDS: ESCITALOPRAM OXALATE 10 MG TABLET PO SCH (09:00)
[2019-04-21] MEDS: NITROFURANTOIN/NITROFURAN MAC 100 MG CAPSULE PO SCH ×4 (09:00→20:25)
[2019-04-21] MEDS ORDERED: Medication Not On Formulary EA (Multivitamins (Multivitamin) 1 EACH) PO SCH (09:00)
[2019-04-21] MEDS: CLONAZEPAM 0.5 MG TABLET PO PRN ×2 (11:28→11:33)
[2019-04-21 16:25] VITALS: BP 154/71
--- NOTE | 2019-04-21 18:00 | NUR ---
Patient in Bed, awake and verbally responsive. No signs of Distress noted. On 14 day HOLD as ordered. Patient has episode of Anxiety. Remains on 1:1 sitter for safety. No Suicidal Ideation. pt refused am meds aware. Will Endorse to Oncoming Nurse.
--- NOTE | 2019-04-21 19:35 | NUR ---
PATIENT ALERT X2, NO COMPLAIN OF PAIN, NO COMPLAIN OF DISCOMFORT, BUT WANTED TO WANDER AROUND THE UNIT. PATIENT ON 1;1 SITTER FOR SAFETY. PATIENT HAS NO VERBAL EXPRESSION OF SUICIDAL AT THIS TIME. PATIENT ON CONTACT ISOLATION ESBL URINE. PATIENT CONTINENT USES BATHROOM FOR ELIMINATIONS. CONT TO MONITOR.
[2019-04-21] MEDS: DOCUSATE SODIUM 100 MG CAPSULE PO SCH (20:25)
[2019-04-21] MEDS: ATORVASTATIN 10 MG TABLET PO SCH (20:26)
[2019-04-21] MEDS: risperiDONE 0.25 MG TABLET PO SCH (20:26)
--- NOTE | 2019-04-21 20:45 | NUR ---
PATIENT IN THE ROOM AND WHILE GIVING MEDICATIONS, PATIENT VERBALIZED THAT SHE HAVE SEXUAL DESIRED FOR A MEN. PATIENT STATE THAT SHE FOR LONG PERIOD OF TIME BUT HER , AND SHE NEVER REMARRIED. REDIRECT PATIENT BY ENCOURAGING PATIENT TO WATCH TV OR READ TO KEEP HER MIND BUSY. CONT ON 1;1 SITTER FOR SAFETY.
[2019-04-21] MEDS: TEMAZEPAM 7.5 MG CAPSULE PO PRN (20:57)
[2019-04-22] MEDS: PANTOPRAZOLE SODIUM 40 MG TABLET.DR PO SCH (06:15)
--- NOTE | 2019-04-22 06:27 | NUR ---
PATIENT ALERT, NO COMPLAIN OF PAIN AT THIS TIME. PATIENT SLEPT FOR 7 HRS. PATIENT COOPERATIVE WITH MEDICATIONS AND LAB WORKS AT THIS TIME. PATIENT REMAIN 1;1 SITTER FOR SAFETY. PATIENT REMAINS ON CONTACT ISOLATION FOR ESBL URINE. PATIENT WAS ENCOURAGE TO DRINK EXTRA FLUIDS. CONT TO MONITOR.
[2019-04-22 06:32] VITALS: BP 151/70
[2019-04-22 06:47] LABS: BASOPHILS % (AUTO) 0.3 % (0.0-2.0); EOSINOPHILS % (AUTO) 0.3 % (0.0-7.0); HEMATOCRIT 31.9 % (31.2-41.9); HEMOGLOBIN 10.5 g/dL (10.9-14.3); LYMPHOCYTES # (AUTO) 10.8 K/uL (20.0-40.0); LYMPHOCYTES % (AUTO) 82.4 % (20.5-51.5); MEAN CORPUSCULAR HEMOGLOBIN 28.5 uug (24.7-32.8); MEAN CORPUSCULAR HGB CONC 33 g/dL (32.3-35.6); MEAN CORPUSCULAR VOLUME 86.6 fL (75.5-95.3); MONOCYTES # (AUTO) 0.3 K/uL (2.0-10.0); MONOCYTES % (AUTO) 2.1 % (0.0-11.0); NEUTROPHILS # (AUTO) 1.9 K/uL (1.8-8.9); NEUTROPHILS % (AUTO) 14.9 % (38.5-71.5); PLATELET COUNT (AUTO) 146 K/uL (179-408); RED BLOOD CELL COUNT(AUTO) 3.68 MIL/uL (3.63-4.92); WHITE BLOOD COUNT (AUTO) 13.1 K/uL (3.8-11.8)
[2019-04-22 06:53] LABS: CREATININE 0.8 mg/dL (0.6-1.3)
[2019-04-22 08:00] VITALS: BP 113/52
[2019-04-22] MEDS: NITROFURANTOIN/NITROFURAN MAC 100 MG CAPSULE PO SCH ×2 (09:37→21:00)
[2019-04-22] MEDS: ESCITALOPRAM OXALATE 10 MG TABLET PO SCH (09:37)
--- NOTE | 2019-04-22 09:45 | NUR ---
received patient in bed,alert oriented x2. On 14 day HOLD as ordered with 1:1 sitter for safety. No Suicidal Ideation. pt. took all AM medication. safety measures in place. call light within reach. will continue to monitor pt.
[2019-04-22] MEDS: MULTIVITAMINS,THERAPEUTIC TABLET PO SCH (09:46)
[2019-04-22] MEDS: METOPROLOL TARTRATE 25 MG TABLET PO SCH ×2 (09:46→21:00)
[2019-04-22] MEDS: HEPARIN SODIUM,PORCINE 5,000 UNITS/ML VIAL SQ SCH ×2 (09:54→21:00)
[2019-04-22] MEDS: ACETAMINOPHEN 325 MG TABLET PO PRN (11:19)
[2019-04-22 16:30] VITALS: BP 113/56
--- NOTE | 2019-04-22 19:30 | NUR ---
PATIENT ALERT AND ORIENTEDX2. PT WANDERS IN THE UNIT. SITTER FOR SAFETY PROVIDED. PT IN NO ACUTE DISTRESS. PT WANTS TO BE TRANSFERRED IN A DIFFERENT ROOM. PT NEEDS REORIENTATION. SAFETY AND COMFORT PROVIDED. WILL CONTINUE TO MONITOR.
[2019-04-22 20:00] VITALS: BP 106/47
[2019-04-22] MEDS: risperiDONE 0.25 MG TABLET PO SCH (21:00)
[2019-04-22] MEDS: ATORVASTATIN 10 MG TABLET PO SCH (21:00)
[2019-04-22] MEDS: DOCUSATE SODIUM 100 MG CAPSULE PO SCH (21:00)
[2019-04-22] MEDS: CLONAZEPAM 0.5 MG TABLET PO PRN (21:46)
--- NOTE | 2019-04-22 22:18 | NUR ---
PT REFUSED HER NIGHT MEDICATIONS. SITTER PROVIDED FOR SAFETY. PT HAS NO SUICIDAL IDEATION. WILL CONTINUE TO MONITOR.
--- NOTE | 2019-04-23 06:18 | NUR ---
PT SLEPT 6 HOURS AND 15 MINUTES..SITTER FOR SAFETY PROVIDED.PT REFUSED HER MEDICATIONS. CHARGE NURSE AWARE. SAFETY AND COMFORT PROVIDED. WILL ENDORSE TO INCOMING NURSE FOR CONTINUITY OF CARE.
[2019-04-23] MEDS: PANTOPRAZOLE SODIUM 40 MG TABLET.DR PO SCH (06:36)
[2019-04-23 07:47] VITALS: BP 152/53
[2019-04-23 08:00] VITALS: BP 152/53
--- NOTE | 2019-04-23 08:00 | NUR ---
PT AMBULATING IN HALLWAY WITH 1:1 SITTER. NO ACUTE DISTRESS OR SOB NOTED. PT ALERT AND ORIENTED X 2. PT DENIES PAIN AT THIS TIME. PT DENIES SUICIDAL IDEATION AT THIS TIME. WILL CONTINUE TO MONITOR FOR SAFETY.
[2019-04-23] MEDS: MULTIVITAMINS,THERAPEUTIC TABLET PO SCH (09:00)
[2019-04-23] MEDS: NITROFURANTOIN/NITROFURAN MAC 100 MG CAPSULE PO SCH ×2 (09:00→20:14)
[2019-04-23] MEDS: HEPARIN SODIUM,PORCINE 5,000 UNITS/ML VIAL SQ SCH ×2 (09:00→20:16)
[2019-04-23] MEDS: ESCITALOPRAM OXALATE 10 MG TABLET PO SCH (10:13)
[2019-04-23] MEDS: METOPROLOL TARTRATE 25 MG TABLET PO SCH ×2 (10:14→20:33)
[2019-04-23 15:05] VITALS: BP 146/61
--- NOTE | 2019-04-23 18:00 | NUR ---
PT RESTING IN BED. PT WITH 1:1 SITTER AT BEDSIDE. NO ACUTE DISTRESS OR SOB NOTED. PT ALERT AND ORIENTED X 2. PT DENIES PAIN AT THIS TIME. PT DENIES SUICIDAL IDEATION AT THIS TIME. WILL GIVE REPORT ACCORDINGLY.
[2019-04-23] MEDS: risperiDONE 0.25 MG TABLET PO SCH (20:13)
[2019-04-23] MEDS: DOCUSATE SODIUM 100 MG CAPSULE PO SCH (20:13)
[2019-04-23 20:30] VITALS: BP 115/85
[2019-04-23] MEDS: ATORVASTATIN 10 MG TABLET PO SCH (20:33)
--- NOTE | 2019-04-23 20:33 | NUR ---
Lopressor held because patient's heart rate is 55.
[2019-04-23] MEDS: TEMAZEPAM 7.5 MG CAPSULE PO PRN (21:14)
--- NOTE | 2019-04-24 05:15 | NUR ---
No acute change in patient condition. 1:1 sitter at bedside. Alert and oriented x 2. Patient compliant with most medications. Patient anxious towards beginning of shift. Slept well throughout the night. Comfort, safety, and therapeutic environment provided to patient. Will endorse care to next shift.
[2019-04-24] MEDS: PANTOPRAZOLE SODIUM 40 MG TABLET.DR PO SCH ×2 (06:22→06:26)
[2019-04-24] MEDS: ESCITALOPRAM OXALATE 10 MG TABLET PO SCH (08:28)
[2019-04-24] MEDS: NITROFURANTOIN/NITROFURAN MAC 100 MG CAPSULE PO SCH ×2 (08:28→20:54)
[2019-04-24] MEDS: MULTIVITAMINS,THERAPEUTIC TABLET PO SCH (08:28)
[2019-04-24 08:40] VITALS: BP 116/55
[2019-04-24] MEDS: HEPARIN SODIUM,PORCINE 5,000 UNITS/ML VIAL SQ SCH ×2 (08:40→20:54)
[2019-04-24] MEDS: METOPROLOL TARTRATE 25 MG TABLET PO SCH ×2 (08:44→20:53)
[2019-04-24] MEDS: CLONAZEPAM 0.5 MG TABLET PO PRN (15:35)
[2019-04-24 16:18] VITALS: BP 121/64
[2019-04-24 20:00] VITALS: BP 148/66
[2019-04-24 20:18] VITALS: BP 143/61
[2019-04-24] MEDS: DOCUSATE SODIUM 100 MG CAPSULE PO SCH (20:53)
[2019-04-24] MEDS: ATORVASTATIN 10 MG TABLET PO SCH (20:53)
[2019-04-24] MEDS: risperiDONE 0.25 MG TABLET PO SCH (20:54)
--- NOTE | 2019-04-24 21:00 | NUR ---
Patient refused all her meds, explained risks and benefits, still refused. Patient still noted w/ hypersexual behavior. Cont w/ 1:1 sitted for safety
[2019-04-24] MEDS: TEMAZEPAM 7.5 MG CAPSULE PO PRN (23:09)
[2019-04-25 03:11] VITALS: BP 124/56
[2019-04-25] MEDS: PANTOPRAZOLE SODIUM 40 MG TABLET.DR PO SCH (06:37)
--- NOTE | 2019-04-25 06:48 | NUR ---
Patient noted w/ episode of restlessness but patient refusing all nursing care and meds. Reoriented and redirected patient and was able to calm down. Will endorse accordingly Addendum: 04/25/19 at 0657 by EMMANUEL OLIVEROS RN Unable to collect urine, patient also refusing to give urine sample
[2019-04-25] MEDS: NITROFURANTOIN/NITROFURAN MAC 100 MG CAPSULE PO SCH ×3 (08:02→21:04)
[2019-04-25] MEDS: ESCITALOPRAM OXALATE 10 MG TABLET PO SCH (08:18)
[2019-04-25] MEDS: METOPROLOL TARTRATE 25 MG TABLET PO SCH ×3 (08:18→21:06)
[2019-04-25] MEDS: MULTIVITAMINS,THERAPEUTIC TABLET PO SCH (08:18)
[2019-04-25] MEDS: HEPARIN SODIUM,PORCINE 5,000 UNITS/ML VIAL SQ SCH ×3 (08:19→21:07)
--- NOTE | 2019-04-25 08:30 | NUR ---
PATIENT REFUSING AM MEDICATIONS , REFUSING CARE . ENCOURAGE FLUIDS BUT PATIENT REFUSED. CONTINUE TO REDIREDT AND ENCOURAGE PATIENT , CONTINUE TO PROVIDE CARE TO THE PATIENT. UNABLE TO COLLECT URINE.
--- NOTE | 2019-04-25 11:30 | NUR ---
patient got agitated , aggressive and starting to walk towards the elevator , tried to redirect the patient , patient got even agitated, called ,with orders of 1mg of Ativan IM .
[2019-04-25] MEDS ORDERED: LORAZEPAM 2 MG/1 ML VIAL IM ONE (11:45)
--- NOTE | 2019-04-25 11:45 | NUR ---
IM Ativan 1mg given to patient as ordered x1.
[2019-04-25 12:00] VITALS: BP 96/37
--- NOTE | 2019-04-25 15:15 | NUR ---
patient transferred to room 141A, no s/s of acute distress noted at this time. denies any SI/HI at this time. will continue to monitor.
--- NOTE | 2019-04-25 15:44 | NUR ---
FIREARMS REPORT: Solvent Station Attendant completed and submitted a [employer] firearms report for 5250 grave disability certification. A copy of report has been placed in patient chart.
[2019-04-25 16:41] VITALS: BP_SYST 116; BP_SYST 118; BP_DIAS 58
--- NOTE | 2019-04-25 19:42 | NUR ---
Received patient in bed, no behavioral issue at this time. will remain in psych facility for further evaluation and treatment.
[2019-04-25] MEDS: risperiDONE 0.25 MG TABLET PO SCH ×2 (21:00→21:04)
[2019-04-25] MEDS: DOCUSATE SODIUM 100 MG CAPSULE PO SCH ×2 (21:00→21:05)
[2019-04-25] MEDS: ATORVASTATIN 10 MG TABLET PO SCH ×2 (21:00→21:04)
--- NOTE | 2019-04-25 21:31 | NUR ---
Patient refused HS medication. Explained benefits but patient still refused
[2019-04-26] MEDS: PANTOPRAZOLE SODIUM 40 MG TABLET.DR PO SCH (06:02)
[2019-04-26 07:10] LABS: BASOPHILS % (AUTO) 0.2 % (0.0-2.0); EOSINOPHILS % (AUTO) 0.3 % (0.0-7.0); HEMATOCRIT 31.5 % (31.2-41.9); HEMOGLOBIN 10.4 g/dL (10.9-14.3); LYMPHOCYTES # (AUTO) 10.7 K/uL (20.0-40.0); LYMPHOCYTES % (AUTO) 75.7 % (20.5-51.5); MEAN CORPUSCULAR HEMOGLOBIN 29.1 uug (24.7-32.8); MEAN CORPUSCULAR HGB CONC 33 g/dL (32.3-35.6); MEAN CORPUSCULAR VOLUME 88.3 fL (75.5-95.3); MONOCYTES # (AUTO) 0.4 K/uL (2.0-10.0); MONOCYTES % (AUTO) 2.6 % (0.0-11.0); NEUTROPHILS % (AUTO) 21.2 % (38.5-71.5); PLATELET COUNT (AUTO) 144 K/uL (179-408); RED BLOOD CELL COUNT(AUTO) 3.57 MIL/uL (3.63-4.92); WHITE BLOOD COUNT (AUTO) 14.1 K/uL (3.8-11.8)
[2019-04-26 07:21] LABS: CARBON DIOXIDE 29 mmol/L (21-32); CHLORIDE 106 mmol/L (98-107); CREATININE 0.7 mg/dL (0.6-1.3); GLUCOSE 102 mg/dL (74-106); POTASSIUM 4.2 mmol/L (3.5-5.1); UREA NITROGEN, BLOOD 25 mg/dL (7-18)
[2019-04-26 07:22] LABS: PHOSPHOROUS 3.4 mg/dL (2.5-4.9)
[2019-04-26 07:30] VITALS: BP 162/52
[2019-04-26] MEDS: METOPROLOL TARTRATE 25 MG TABLET PO SCH ×2 (09:00→21:22)
[2019-04-26] MEDS: MULTIVITAMINS,THERAPEUTIC TABLET PO SCH (09:00)
[2019-04-26] MEDS: HEPARIN SODIUM,PORCINE 5,000 UNITS/ML VIAL SQ SCH (09:00)
[2019-04-26] MEDS: NITROFURANTOIN/NITROFURAN MAC 100 MG CAPSULE PO SCH ×2 (09:00→10:41)
[2019-04-26] MEDS: ESCITALOPRAM OXALATE 10 MG TABLET PO SCH ×3 (09:00→10:42)
[2019-04-26] MEDS: CLONAZEPAM 0.5 MG TABLET PO PRN ×2 (10:35→15:48)
[2019-04-26] MEDS: AMOXICILLIN-CLAVUL 875-125MG TABLET PO SCH ×3 (11:30→21:21)
--- NOTE | 2019-04-26 12:36 | NUR ---
GPS: received patient AOx1-2, patient confused, disorganized, patient isolative , withdrawn, not cooperating with the medication, patient refusing her medication, and trying to get out of the unit
[2019-04-26 16:26] VITALS: BP 132/59
--- NOTE | 2019-04-26 17:28 | NUR ---
patient remain isolative , withdrawn and anxious, took her antibiotics for UTI today, will continue monitor
--- NOTE | 2019-04-26 20:00 | NUR ---
Patient received into care, sleeping in bed, resting comfortably. Patient has no signs or symptoms of acute distress or discomfort noted or observed by nurse. All safety and fall precaution measures are in place. Will continue to monitor throughout shift.
[2019-04-26 21:00] VITALS: BP 157/58
[2019-04-26] MEDS: DOCUSATE SODIUM 100 MG CAPSULE PO SCH (21:21)
[2019-04-26] MEDS: risperiDONE 0.25 MG TABLET PO SCH (21:21)
[2019-04-26] MEDS: ATORVASTATIN 10 MG TABLET PO SCH (21:21)
--- NOTE | 2019-04-27 00:10 | NUR ---
received report from security shift manager nurse. will continue plan of care for patient and monitor. Addendum: 04/27/19 at 0049 by TOYA ZARAGOZA RN correction: incorrect documentation. please disregard above notes.
[2019-04-27] MEDS: PANTOPRAZOLE SODIUM 40 MG TABLET.DR PO SCH (06:26)
--- NOTE | 2019-04-27 06:27 | NUR ---
Patient refused prescribed 0700 Protonix. Nurse explained risks/benefits three times. Patient still refused.
--- NOTE | 2019-04-27 06:49 | NUR ---
Patient slept comfortably throughout night with a combined 9.30 hours fo sleep. Patient did not verbalize any complaints of pain or discomfort this shift. Patient was compliant with HS prescribed medicine regimen and care, but refused 0700 prescribed protonix, despite explanation of risks/benefits three times by nurse, as well as morning care that included shower. All safety and fall precaution measures remain in place.
[2019-04-27 07:30] VITALS: BP 139/58
[2019-04-27] MEDS: METOPROLOL TARTRATE 25 MG TABLET PO SCH ×2 (08:35→20:31)
[2019-04-27] MEDS: AMOXICILLIN-CLAVUL 875-125MG TABLET PO SCH ×2 (08:35→20:31)
[2019-04-27] MEDS: MULTIVITAMINS,THERAPEUTIC TABLET PO SCH (08:35)
[2019-04-27] MEDS: ESCITALOPRAM OXALATE 10 MG TABLET PO SCH (08:35)
[2019-04-27 16:56] VITALS: BP 129/60
[2019-04-27 20:11] VITALS: BP 137/53
[2019-04-27] MEDS: ATORVASTATIN 10 MG TABLET PO SCH (20:31)
[2019-04-27] MEDS: DOCUSATE SODIUM 100 MG CAPSULE PO SCH (20:31)
[2019-04-27] MEDS: risperiDONE 0.25 MG TABLET PO SCH (20:39)
--- NOTE | 2019-04-27 20:57 | NUR ---
Patient refused all medications this PM. Explanation of risks and benefits given.
[2019-04-28] MEDS: PANTOPRAZOLE SODIUM 40 MG TABLET.DR PO SCH (06:05)
--- NOTE | 2019-04-28 06:16 | NUR ---
Patient slept 6.30 hours. Still refusing to take medications this am. No distress during the night. Will endorse to day shift.
[2019-04-28 07:30] VITALS: BP 160/73
[2019-04-28] MEDS: MULTIVITAMINS,THERAPEUTIC TABLET PO SCH (09:00)
[2019-04-28] MEDS: ESCITALOPRAM OXALATE 10 MG TABLET PO SCH (09:00)
[2019-04-28] MEDS: METOPROLOL TARTRATE 25 MG TABLET PO SCH ×2 (09:00→20:34)
[2019-04-28] MEDS: AMOXICILLIN-CLAVUL 875-125MG TABLET PO SCH ×3 (09:00→20:34)
[2019-04-28] MEDS: ACETAMINOPHEN 325 MG TABLET PO PRN (14:52)
[2019-04-28 16:00] VITALS: BP 110/53
[2019-04-28 20:21] VITALS: BP 135/61
[2019-04-28] MEDS: ATORVASTATIN 10 MG TABLET PO SCH (20:33)
[2019-04-28] MEDS: DOCUSATE SODIUM 100 MG CAPSULE PO SCH (20:33)
[2019-04-28] MEDS: risperiDONE 0.25 MG TABLET PO SCH (20:34)
--- NOTE | 2019-04-28 20:53 | NUR ---
Patient refusing to take medications this PM. Continuing to encourage and educate patient on their importance. No acute distress at this time and VS are stable.
--- NOTE | 2019-04-28 23:48 | NUR ---
protonix wasted in morning. refused by patient despite education. Addendum: 04/28/19 at 2349 by TOYA ZARAGOZA RN incorrect documentation.
--- NOTE | 2019-04-29 05:47 | NUR ---
Patient slept 5.30 hours last night. Patient offered medication but refused. Md aware of noncompliance. Patient quiet at this time in the bed, no distress noted.
[2019-04-29] MEDS: PANTOPRAZOLE SODIUM 40 MG TABLET.DR PO SCH (06:01)
[2019-04-29 08:27] VITALS: BP 157/70
[2019-04-29] MEDS: ESCITALOPRAM OXALATE 10 MG TABLET PO SCH (09:00)
[2019-04-29] MEDS: AMOXICILLIN-CLAVUL 875-125MG TABLET PO SCH ×2 (09:00→20:43)
[2019-04-29] MEDS: METOPROLOL TARTRATE 25 MG TABLET PO SCH ×2 (09:00→20:43)
[2019-04-29] MEDS: MULTIVITAMINS,THERAPEUTIC TABLET PO SCH (09:00)
[2019-04-29 18:15] VITALS: BP 127/78
[2019-04-29 20:08] VITALS: BP 145/68
[2019-04-29] MEDS: ATORVASTATIN 10 MG TABLET PO SCH (20:43)
[2019-04-29] MEDS: DOCUSATE SODIUM 100 MG CAPSULE PO SCH (20:43)
[2019-04-29] MEDS: risperiDONE 0.25 MG TABLET PO SCH (20:45)
[2019-04-30] MEDS: PANTOPRAZOLE SODIUM 40 MG TABLET.DR PO SCH (06:18)
[2019-04-30] MEDS: ESCITALOPRAM OXALATE 10 MG TABLET PO SCH ×2 (08:02→11:23)
[2019-04-30] MEDS: AMOXICILLIN-CLAVUL 875-125MG TABLET PO SCH ×2 (08:02→20:46)
[2019-04-30] MEDS: MULTIVITAMINS,THERAPEUTIC TABLET PO SCH (08:03)
[2019-04-30] MEDS: METOPROLOL TARTRATE 25 MG TABLET PO SCH ×2 (08:03→20:46)
[2019-04-30] MEDS: ACETAMINOPHEN 325 MG TABLET PO PRN (11:27)
--- NOTE | 2019-04-30 15:20 | NUR ---
Anna CAT AND DOG BATHER requested Straight cath for UA, patient is agitated and aggressive refused the straight cath to be done.
--- NOTE | 2019-04-30 18:47 | NUR ---
patient still refused most of medication ,Dr. Stoner made aware , will be discharge patient in am to SNF if placement is available.
[2019-04-30 20:00] VITALS: BP 151/66
[2019-04-30] MEDS: DOCUSATE SODIUM 100 MG CAPSULE PO SCH (20:46)
[2019-04-30] MEDS: ATORVASTATIN 10 MG TABLET PO SCH (20:46)
--- NOTE | 2019-05-01 00:15 | NUR ---
GPS: Observed to be still awake at this time. Refused Restoril 7.5mg PO when offered numerous times. Snacks given as requested. Will continue to monitor. Quiet environment provided to facilitate sleep.
[2019-05-01] MEDS: PANTOPRAZOLE SODIUM 40 MG TABLET.DR PO SCH (06:22)
[2019-05-01 07:30] VITALS: BP 135/58
[2019-05-01] MEDS: ESCITALOPRAM OXALATE 10 MG TABLET PO SCH (08:05)
[2019-05-01] MEDS: AMOXICILLIN-CLAVUL 875-125MG TABLET PO SCH ×2 (08:05→20:29)
[2019-05-01] MEDS: MULTIVITAMINS,THERAPEUTIC TABLET PO SCH (08:06)
[2019-05-01] MEDS: METOPROLOL TARTRATE 25 MG TABLET PO SCH ×2 (08:06→20:34)
[2019-05-01] MEDS: ACETAMINOPHEN 325 MG TABLET PO PRN (14:46)
[2019-05-01 15:24] VITALS: BP 147/75
--- NOTE | 2019-05-01 16:37 | NUR ---
Discharge Planning Iron Carrier faxed patient's referral packet to [facility] ( ; ) for [place] placement [place] [facility]. Per [facility], patient is accepted. Iron Carrier waiting to confirm details for facility in order to proceed with arranging a proper discharge. patient's on, Kelvin have agreed to this placement. Addendum: 05/03/19 at 1401 by BETY ENAMORADO Patient not accepted to this facility due to the facility not being a locked unit, and risk of patient wandering and eloping.
[2019-05-01 20:24] VITALS: BP 145/43
[2019-05-01] MEDS: DOCUSATE SODIUM 100 MG CAPSULE PO SCH (20:33)
[2019-05-01] MEDS: ATORVASTATIN 10 MG TABLET PO SCH (20:33)
[2019-05-02] MEDS: PANTOPRAZOLE SODIUM 40 MG TABLET.DR PO SCH (06:12)
--- NOTE | 2019-05-02 06:29 | NUR ---
GPS: Pt.awake at this time,anxious,depressed and verbalizing to staff that she does not want to live anymore. Denied having a plan to hurt self. Re-assured and was re-directed frequently. Refused Klonopin 0.5mg when offered despite explanation of risks vs.benefits x3. Close monitoring continues. Will endorsed to incoming nurse.
[2019-05-02 07:46] VITALS: BP 135/60
[2019-05-02] MEDS: METOPROLOL TARTRATE 25 MG TABLET PO SCH ×2 (09:00→21:00)
[2019-05-02] MEDS: MULTIVITAMINS,THERAPEUTIC TABLET PO SCH (09:00)
[2019-05-02] MEDS: ESCITALOPRAM OXALATE 10 MG TABLET PO SCH (09:00)
[2019-05-02] MEDS: AMOXICILLIN-CLAVUL 875-125MG TABLET PO SCH ×2 (09:39→20:52)
[2019-05-02 16:21] VITALS: BP 159/90
[2019-05-02] MEDS: CLONAZEPAM 0.5 MG TABLET PO PRN (17:19)
[2019-05-02] MEDS: DOCUSATE SODIUM 100 MG CAPSULE PO SCH (21:00)
[2019-05-02] MEDS: ATORVASTATIN 10 MG TABLET PO SCH (21:00)
--- NOTE | 2019-05-02 22:00 | NUR ---
received to care, lying in bed, mostly non interactive, when engaged. refused all medications offered, except for her antibiotics. also refused all snacks and fluids, which were left at bedside. as of 0, she appears to be asleep. no distress noted. will continue to monitor closely.
--- NOTE | 2019-05-03 06:00 | NUR ---
slept 8.25 hours, but refused am protonix dose.
[2019-05-03] MEDS: PANTOPRAZOLE SODIUM 40 MG TABLET.DR PO SCH (06:28)
[2019-05-03 07:30] VITALS: BP 159/56
[2019-05-03 09:00] VITALS: BP 159/56
[2019-05-03] MEDS: MULTIVITAMINS,THERAPEUTIC TABLET PO SCH (09:00)
[2019-05-03] MEDS: AMOXICILLIN-CLAVUL 875-125MG TABLET PO SCH ×2 (09:00→09:37)
[2019-05-03] MEDS: METOPROLOL TARTRATE 25 MG TABLET PO SCH (09:00)
[2019-05-03] MEDS: ESCITALOPRAM OXALATE 10 MG TABLET PO SCH (09:00)
--- NOTE | 2019-05-03 14:01 | NUR ---
Discharge planning KARYN note: Senior Storage Engineer working closely with patient and son, Gee ([phone]) trying to find the patient a safe placement. Mari ([phone]) willing to accept patient at her board and care with the patient's limited budget of approximately $900, however facility is located in [place] and is quite far. Senior Storage Engineer also faxed marcia's referrral packet to [facility] (fax: [phone]), [facility] ( ) and [facility] (fax: [phone]). [facility] ([facility]; [phone]) is working on trying patient acceptance into the above mentioned facilities at this time. Addendum: 05/03/19 at 1610 by BETY ENAMORADO Patient was accepted at [facility], however, patient also accepted at [facility] placement, which Gee (son; [phone]) has agreed to due to caregiver being equatorial guinean speaking who can communicate with the patient better. KARYN will be arranging this plan.
--- NOTE | 2019-05-03 16:07 | NUR ---
Discharge Note: Patient will be discharged to [facility] [Address: [address] [facility] [place] [address]; [phone]]. Valerie (salesforce administrator) will be picking the patient up at 5pm. Spoke with Valerie [Dip Tube Assembler Machine] at the facility who states they are ready to accept the patient today. Patient is aware and agreeable with discharge plans. Patient is alert and oriented x3-4, is unable to plan for self-care at this time, however, is willing to accept care at the facility. Patient denies any suicidal or homicidal ideation. Spoke with patients son, Gee Lam ([phone]) who has agreed with discharge plans and expressed he is happy the facility has a Venezuelan speaking caregiver. Patient will be provided with home health services by the facility to ensure medication management, shower assistance, and physical therapy. The facility is providing with a 24-hour caregiver for the patient, who will also assist with meals, laundry, and safety. The patient is referred to [facility] for psychiatry follow up. The patient will also be following up with a primary care physician that is provided by the facility. Patient was provided with outpatient mental health resources to [facility] , and the National Suicide Prevention Lifeline .
--- NOTE | 2019-05-03 18:26 | NUR ---
Patient is being discharged to [facility]. Pt is A/O x 4, willing to go. Patient's son Gee is aware. Vs are stable, no distress noted.
== END 2019-05-03 18:00 | DRG 885 ==
LOC: GPSOV3 17:18 → GPS 04-25 15:45
PROVIDERS: ADMIT Psychiatry & Neurology Psychiatry; ATTEND Nurse Practitioner Acute Care
DX: F33.3 Major depressive disorder, recurrent, severe with psychotic symptoms (principal); I11.0 Hypertensive heart disease with heart failure; G93.41 Metabolic encephalopathy; N39.0 Urinary tract infection, site not specified; Z16.12 Extended spectrum beta lactamase (ESBL) resistance; Z16.11 Resistance to penicillins; B96.20 Unspecified Escherichia coli [E. coli] as the cause of diseases classified elsewhere; F03.90 Unspecified dementia, unspecified severity, without behavioral disturbance, psychotic disturbance, mood disturbance, and anxiety; D63.8 Anemia in other chronic diseases classified elsewhere; D69.6 Thrombocytopenia, unspecified; N20.0 Calculus of kidney; I50.9 Heart failure, unspecified; Z85.6 Personal history of leukemia; Z91.14 Patient's other noncompliance with medication regimen; Z91.19 Patient's noncompliance with other medical treatment and regimen; K59.00 Constipation, unspecified; K21.9 Gastro-esophageal reflux disease without esophagitis; I73.9 Peripheral vascular disease, unspecified
CPT/HCPCS: 36415; 70030-TC; 83735; 84100; 85025; J1644; J2060; Q0162